=== PATIENT | female | born 1975 | race Caucasian/White ===

== ENCOUNTER 2024-08-29 09:41 | Outpatient (AMB) | payer BC, SELFPAY ==
--- OUTSIDE RECORDS SUMMARY | 2024-08-29 10:23 | XMS_ITS | Data Portability ---
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 Plan of Treatment Reminders Order Date Submit Date Provider Last Modified By Organization Details Last Modified Time Details Appointments FOLLOW UP 1 2024 10:45A M Humberto Alex MD Not available Not available Not available Lab lipid panel, serum 2024 025 [facility], [address] , [facility], [place], [address], 07/06/2024 09:12:30 CMP, serum or plasma 2024 025 [facility], [address], [address], [place], [address], 07/06/2024 09:12:30 TSH, ultra- sensit urbano, serum 2024 025 SARAH [facility] (Centralized Electronic Ordering - All Locations), Patient Can Go To The Location Of Their Choice, [address] 07/06/2024 09:12:29 vitami n D, 25-hyd irma, total, serum 2024 025 SARAH [facility] (Centralized Electronic Ordering - All Locations), Patient Can Go To The Location Of Their Choice, 07/06/2024 09:12:29 lipid panel, serum 2023 024 [facility], [address], [address], [place], [address], 09/22/2023 13:24:00 CMP, serum or plasma 2023 024 [facility], [address] [facility], [address], [place], [address], 09/22/2023 13:23:59 TSH, serum or plasma 2023 024 [facility], [address] [facility], [address], [place], [address], 09/22/2023 13:24:00 vitami n D, 25-hyd irma, total, serum 2023 024 SARAH [facility] (Centralized Electronic Ordering - All Locations), Patient Can Go To The Location Of Their Choice, 09/22/2023 13:24:01 Referral nutrit ionist /dieti sheryl referr al 2024 025 Not available 07/06/2024 11:45:39 psychi atrist referr al - Medica tion consul tation with Adolph Lemos MD 2023 024 paramjit Lemos MD, [address] [facility], [place], [address], 01/22/2024 22:40:18 gyneco logist referr al - for eval of irregu lar period s/cerv ical cancer screen ing 2023 024 alberto Mccracken MD, [address] [facility], [address], [place], [address], 01/03/2024 09:45:33 gyneco logist referr al - Patien t to schedu le 2023 024 [email or web address] Not available 01/03/2024 09:45:33 gastro entero logist referr al - Needs colon cancer screen ing 2023 024 [email or web address] [facility], [address], [address], [place], [address], 07/05/2023 13:34:07 nutrit ionist /dieti sheryl referr al 2023 024 [email or web address] Not available 07/05/2023 13:28:37 Procedures colono scopy screen ing (PROC) 2023 024 [id number] In-Office Order, Internal Use Only DO Not Attach Compendium DO Not Attach Compendium, Do Not Delete/merge, 07/05/2023 13:26:59 Surgeries None record ed. Imaging electr ocardi ogram 2024 025 [email or web address] In-Office Order, Internal Use Only DO Not Attach Compendium DO Not Attach Compendium, Do Not Delete/merge, 07/06/2024 09:24:21 electr omyogr am + nerve conduc tion study - for b/l upper extrem ity 2023 024 [email or web address] [facility] Neurosurgery Clinical Nurse Reviewer, [address] [place] [address] , [place], [address], 02/24/2024 09:18:51 Medication Orders clonaz epam 0.5 mg tablet 2024 025 [id number], [address], [place], [address], 07/06/2024 09:12:17 Patient TargetsNo targets recorded. Patient Instructions Encounter Date Encounter Id Patient Instructions Last Modified By Organization Details Last Modified Time 12/31/2022 [id number] Medications (OTC, herbal therapies, supplements) reviewed and reconciled with patient and or caregiver, including potential side effects, drug interactions, instructions, and the consequences of not taking medication. Reviewed potential barriers to medication adherence, such as side effects from medication or cost of medication. [email or web address] Not available 12/31/2022 13:56:49 03/25/2023 [id number] sleep apnea: care instructions awychowski Not available 03/25/2023 13:23:41 learning about mood disorders awychowski Not available 03/25/2023 13:23:41 07/05/2023 [id number] high cholesterol: care instructions awychowski Not available 07/05/2023 09:39:42 Cervical Cancer Screening awychowski Not available 07/05/2023 09:41:10 sleep apnea: care instructions awychowski Not available 07/05/2023 09:39:42 fibromyalgia: care instructions awychowski Not available 07/05/2023 09:39:42 anxiety disorder: care instructions awychowski Not available 07/05/2023 09:39:42 learning about mood disorders awychowski Not available 07/05/2023 09:39:42 learning about colon cancer awychowski Not available 07/05/2023 09:39:43 starting a weight loss plan: care instructions awychowski Not available 07/05/2023 09:39:42 12/21/2023 [id number] learning about mood disorders awychowski Not available 12/21/2023 12:02:52 07/06/2024 [id number] high cholesterol: care instructions awychowski Not available 07/06/2024 09:12:14 Cervical Cancer Screening awychowski Not available 07/06/2024 09:12:14 sleep apnea: care instructions awychowski Not available 07/06/2024 09:12:14 fibromyalgia: care instructions awychowski Not available 07/06/2024 09:12:14 anxiety disorder: care instructions awychowski Not available 07/06/2024 09:12:14 learning about mood disorders awychowski Not available 07/06/2024 09:12:14 starting a weight loss plan: care instructions awychowski Not available 07/06/2024 09:12:14 Reason for Referral 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 Refer ral for Body mass index 30+ - obesity Referring Physician: Humberto Alex, Family Medicine, Encounter Date: 07/05/2023 Ornamental Ironworker Helper Referral for Screening for malignant neoplasm of colon Needs colon cancer screening Referring Physician: Family Katty Smith, Encounter Date: 07/05/2023 Loading Machine Operator Referral for Me nometrorrhagia for eval of irregular periods/cervical cancer screening Referring Physician: Family Katty Smith, Encounter Date: 07/05/2023 Loading Machine Operator Referral for Sc reening for malignant neoplasm of cervix Patient to schedule Referring Physician: Family Katty Smith, Encounter Date: 07/05/2023 Psychiatrist Referral for De pressive disorder Medication Consultation Medication consultation with Adolph Lemos MD Referring Physician: Family Katty Smith, Encounter Date: 12/21/2023 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 Refer ral for Body mass index 30+ - obesity Referring Physician: Family Katty Smith, Encounter Date: 07/06/2024 Results Created Date Observation Date Name Description Value Unit Range Abnormal Flag Note LastModifiedBy Organization Detail LastModifiedTime 09/15/19 24 09/15/2023 COMP. METAB OLIC PANEL (14) glucose 88 mg/dL 70-99 normal Not Available [facility] ([facility]) [address] [place], [address], 09/22/2023 13:23:59 09/15/19 24 09/15/2023 COMP. METAB OLIC PANEL (14) BUN 8 mg/dL 6-24 normal Not Available [facility] ([facility]) [address] [place], [address], 09/22/2023 13:23:59 09/15/19 24 09/15/2023 COMP. METAB OLIC PANEL (14) creatinine 0.86 mg/dL 0.57-1 .00 normal Not Available [facility] ([facility]) [address] [place], [address], 09/22/2023 13:23:59 09/15/19 24 09/15/2023 COMP. METAB OLIC PANEL (14) eGFR 83 mL/mi n/1.7 3 >59 normal Not Available [facility] ([facility]) [address] [place], [address], 09/22/2023 13:23:59 09/15/19 24 09/15/2023 COMP. METAB OLIC PANEL (14) BUN/creatini ne ratio 9 9-23 normal Not Available [facility] ([facility]) [address] [facility], [place], [address], 09/22/2023 13:23:59 09/15/19 24 09/15/2023 COMP. METAB OLIC PANEL (14) sodium 139 mmol/ L 134-14 4 normal Not Available [facility] ([facility]) [address] [facility], [place], [address], 09/22/2023 13:23:59 09/15/19 24 09/15/2023 COMP. METAB OLIC PANEL (14) potassium 4.0 mmol/ L 3.5-5. 2 normal Not Available [facility] ([facility]) [address] [place], [address], 09/22/2023 13:23:59 09/15/19 24 09/15/2023 COMP. METAB OLIC PANEL (14) chloride 105 mmol/ L 96-106 normal Not Available [facility] ([facility]) [address] [place], [address], 09/22/2023 13:23:59 09/15/19 24 09/15/2023 COMP. METAB OLIC PANEL (14) carbon dioxide, total 19 mmol/ L 20-29 below low normal Not Available [facility] ([facility]) [address] [place], [address], 09/22/2023 13:23:59 09/15/19 24 09/15/2023 COMP. METAB OLIC PANEL (14) calcium 9.4 mg/dL 8.7-10 .2 normal Not Available [facility] ([facility]) [address] [place], [address], 09/22/2023 13:23:59 09/15/19 24 09/15/2023 COMP. METAB OLIC PANEL (14) protein, total 7.2 g/dL 6.0-8. 5 normal Not Available [facility] ([facility]) [address] [place], [address], 09/22/2023 13:23:59 09/15/19 24 09/15/2023 COMP. METAB OLIC PANEL (14) albumin 4.3 g/dL 3.9-4. 9 normal Not Available [facility] ([facility]) [address] [place], [address], 09/22/2023 13:23:59 09/15/19 24 09/15/2023 COMP. METAB OLIC PANEL (14) globulin, total 2.9 g/dL 1.5-4. 5 Not Available [facility] ([facility]) [address] [place], [address], 09/22/2023 13:23:59 09/15/19 24 09/15/2023 COMP. METAB OLIC PANEL (14) bilirubin, total 0.3 mg/dL 0.0-1. 2 normal Not Available [facility] ([facility]) [address] [place], [address], 09/22/2023 13:23:59 09/15/19 24 09/15/2023 COMP. METAB OLIC PANEL (14) alkaline phosphatase 93 IU/L 44-121 normal Not Available [facility] ([facility]) [address] [place], [address], 09/22/2023 13:23:59 09/15/19 24 09/15/2023 COMP. METAB OLIC PANEL (14) AST (SGOT) 19 IU/L 0-40 normal Not Available [facility] ([facility]) [address] [facility], [place], [address], 09/22/2023 13:23:59 09/15/19 24 09/15/2023 COMP. METAB OLIC PANEL (14) ALT (SGPT) 18 IU/L 0-32 normal Not Available [facility] ([facility]) [address] [place], [address], 09/22/2023 13:23:59 09/15/19 24 09/15/2023 LIPID PANEL cholesterol, total 275 mg/dL 100-19 9 above high normal Not Available [facility] ([facility]) [address] [place], [address], 09/22/2023 13:24:00 09/15/19 24 09/15/2023 LIPID PANEL triglyceride s 158 mg/dL 0-149 above high normal Not Available [facility] ([facility]) [address] [place], [address], 09/22/2023 13:24:00 09/15/19 24 09/15/2023 LIPID PANEL HDL cholesterol 53 mg/dL >39 normal Not Available [facility] ([facility]) [address] [facility], [place], [address], 09/22/2023 13:24:00 09/15/19 24 09/15/2023 LIPID PANEL VLDL cholesterol sergio 29 mg/dL 5-40 Not Available [facility] ([facility]) [address] [place], [address], 09/22/2023 13:24:00 09/15/19 24 09/15/2023 LIPID PANEL LDL chol calc ([facility]) 193 mg/dL 0-99 above high normal Not Available [facility] ([facility]) [address] [place], [address], 09/22/2023 13:24:00 09/15/19 24 09/15/2023 LIPID PANEL LDL calc comment: COMMEN T Consi andrea evalu ating for Famil ial Hyper juvencio stero lemia (FH), if clini lisa indic ated. Not Available [facility] ([facility]) [address] [facility], [place], [address], 09/22/2023 13:24:00 09/15/19 24 09/22/2023 THYRO ID STIMU LATIN G HORMO NE TSH-icma 5.3 uu/mL above high normal Refer ence Range : Non-P regna nt Adult 0.450 -4.50 0 Pregn griselda First Trime ster 0.100 -4.00 0 Secon d Trime ster 0.200 -4.00 0 Third Trime ster 0.300 -4.50 0 Not Available [facility] [address] [place], [address], 09/22/2023 13:24:00 09/15/19 24 09/16/2023 VITAM IN D, 25-HY DROXY vitamin D, 25-hydroxy 48.0 NG/mL 30.0-1 00.0 Vitam in D defic iency has been defin ed by the Insti tute of Medic ine and an Endoc rine Socie ty pract ice guide line as a level of serum 25-OH vitam in D less than 20 ng/mL (1,2) . The Endoc rine Socie ty went on to furth er defin e vitam in D insuf ficie ncy as a level betwe en 21 and 29 ng/mL (2). 1. IOM (Inst itute of Medic ine). 2009. Dieta ry refer ence intak es for calci um and D. Tania lassiter [place]: The [facility] [employer] . 2. Alex roque MF, Bessie cabrera [place], Josefa off-F david i ESPINOSA, et al. Evalu ation , treat ment, and preve ntion of vitam in D defic iency : an Endoc rine Socie ty clini sergio pract ice guide line. JCEM. 2010; 96(7) :1911 -30. Not Available [facility] ([facility]) [address] [facility], [place], [address], 09/22/2023 13:24:01 02/23/19 24 02/23/2023 MAMMO , scree aditya, digit al, bilat eral PROCED URE: MM Digita l Mammo Screen ing INDICA TION: Screen ing. No known palpab le abnorm alitie s. COMPAR FRENCH: Mammog tahira dating back to 2019. TECHNI QUE: Full-f ield digita l CC and MLO 3D tomosy nthesi s images of both breast s were acquir ed. Comput er-aid ed detect ion (CAD) was utiliz ed in the interp retati on of this study. DENSIT Y: The breast tissue contai ns scatte red areas of fibrog landul ar densit y. FINDIN GS: No suspic ious masses , suspic ious microc alcifi cation s, or areas of lachelle ectura l distor tion are seen in either breast to sugges t malign griselda. IMPRES CRUZITO: No mammog raphic eviden ce of malign griselda. RECOMM ENDATI ON: Annual mammog raphic screen ing BI-RAD S: 1 (Negat urbano) Lay letter mailed to jun tomy WSN: [id number] Orderi nati Physic marilyn: Humberto Geiger Dictat ed By: Gwendolyn Dejesus MD Dicterica ed Date/T dorene: 8:52 am Review ed By: Gwendolyn Dejesus MD Signed By: Gwendolyn Dejesus MD Signed Date/T dorene: 8:52 am Transc ribed By: CSTracee Transc riptio n Date/T dorene: 8:49 am Birads : Jun huitron Class: Outpat ient [facility] (Outpt Imaging) [address] [facility], [place], [address], 03/25/2023 13:09:35 02/23/19 24 02/24/2020 MAMMO , scree aditya, bilat eral No observ ation record ed. [facility] [address], [place], [address], 03/25/2023 13:09:36 05/12/19 24 05/12/2023 US, hawale x, venou s, upper extre mity, limit ed No observ ation record ed. [facility] Diagn[facility] Imaging Dept [address] [place], [address], 07/05/2023 09:15:44 05/12/19 24 05/12/2023 XR, chest , 2 view No observ ation record ed. [facility] [address] [facility], [place], [address], 07/05/2023 09:15:44 05/17/19 24 05/11/2023 elect rocar diogr am No observ ation record ed. awychowski Not Available 07/04 09:15:44 05/17/19 24 05/11/2023 elect rocar diogr am No observ ation record ed. [facility] Not [facility] 07/04 09:15:44 11/24/19 24 11/24/2023 XR, lumba r spine Lumbar Spine 2 or 3 Views Reason : low back pain COMPAR FRENCH: 015. FINDIN GS: No bone lesion s or fractu res. Normal disc config uratio n. Normal alignm ent. No spondy lolysi s or spondy lolist hesis. Normal soft tissue s. IMPRES CRUZITO: No acute abnorm ality. WSN: [id number] Orderi ng Physic marilyn: Humberto Geiger Dictat ed By: Evan bunch MD, Trent Weller Dictat ed Date/T dorene: 2:46 pm Review ed By: Evan bunch MD, Trent Weller Signed By: Trent Roman MD, V Signed Date/T dorene: 2:46 pm Transc ribed By: MIKE Transc ribed Date/T dorene: 2:45 pm Patien t Class: Outpat ient [facility] (Outpt Imaging) [address] [place], [address], 12/21/2023 11:41:07 11/24/19 24 11/24/2023 XR, thora cic spine , 3 view Thorac ic Spine 3 Views Reason : pain in thorac ic spine COMPAR FRENCH: 012 FINDIN GS: No bone lesion s or fractu res. Mild-t o-mode rate multil evel loss of disc height . Multil evel degene rative endpla te osteop hyte format ion throug hout the thorac ic spine and lower cervic al spine. Mild leftwa rd curvat ure of the upper thorac ic spine and rightw nick curvat ure of the midtho racic spine. Visual ized lungs are clear. Normal soft tissue s. IMPRES CRUZITO: Degene rative disc change s but no eviden ce of an acute proces s. Overal l degene rative disc diseas e has progre ssed when compar ed to 012. WSN: [id number] Orderi ng Physic marilyn: Humberto Geiger Dictat ed By: Jose R Sanchez MD Dictat ed Date/T dorene: 4:33 pm Review ed By: Jose R Sanchez MD Signed By: Jose R Sanchez MD Signed Date/T dorene: 4:33 pm Transc ribed By: MIEK Transc ribed Date/T dorene: 3:59 pm Patien t Class: Outpat ient [facility] (Outpt Imaging) [address] [place], [address], 12/21/2023 11:41:07 02/28/19 25 02/29/2024 elect romyo gram + nerve condu ction study No observ ation record ed. [facility] [address] [place], [address], 02/29/2024 18:06:43 07/07/19 25 07/06/2024 elect rocar diogr am No observ ation record ed. [facility] In-Office Order Internal Use Only DO Not Attach Compendium DO Not Attach Compendium, Do Not Delete/merge, [id number] 07/06/2024 17:13:29 07/07/19 25 elect merly diogr am No observ ation record ed. SARAH In-Office Order Internal Use Only DO Not Attach Compendium DO Not Attach Compendium, Do Not Delete/merge, [id number] 07/06/2024 18:26:21 07/22/19 25 07/20/2024 MAMMO , scree aditya, digit al, bilat eral PROCED URE: MM Digita l Mammo Screen ing INDICA TION: Screen ing for breast cancer . No known palpab le abnorm alitie s. COMPAR FRENCH: Prior mammog tahira most recent ly dated 02/23/19 24. TECHNI QUE: Full-f ield digita l CC and MLO 3D tomosy nthesi s images of both breast s were acquir ed. Comput er-aid ed detect ion (CAD) was utiliz ed in the interp retati on of this study. DENSIT Y: There are scatte red areas of fibrog landul ar densit y. FINDIN GS: No suspic ious masses , suspic ious microc alcifi cation s, or areas of lachelle ectura l distor tion are seen in either breast to sugges t malign griselda. IMPRES CRUZITO: No mammog raphic eviden ce of malign griselda. RECOMM ENDATI ON: Annual mammog raphic screen ing BI-RAD S: 1 (Negat urbano) Lay letter mailed to jun huitron WSN: [id number] Orderi ng Physic marilyn: Humberto Geiger Dictat ed By: Morgan Smith MD Dictat ed Date/T dorene: 10:44 am Review ed By: Morgan Smith MD Signed By: Morgan Smith MD Signed Date/T dorene: 10:44 am Transc ribed By: MIKE Transc riptio n Date/T dorene: 10:35 am Birads : Jun huitron Class: Outpat ient [email or web address] [facility] (Outpt Imaging) [address], [place], [address], 07/21/2024 11:49:56 07/22/1907/20/2024 MAMMO , priya burgess, daniel weems, margarita kelly No observ ation record ed. [facility] [address], [place], [address], 07/24/2024 10:17:41 Result Notes Documentation Provider Name and Address Organization Details Recorded Time Mammo, Screening, Digital, Bilateral : PROCEDURE: MM Digital Mammo Screening INDICATION: Screening. No known palpable abnormalities. COMPARISON: Mammograms dating back to 12/10/2019. TECHNIQUE: Full-field digital CC and MLO 3D tomosynthesis images of both breasts were acquired. Computer-aided detection (CAD) was utilized in the interpretation of this study. DENSITY: The breast tissue contains scattered areas of fibroglandular density. FINDINGS: No suspicious masses, suspicious microcalcifications, or areas of architectural distortion are seen in either breast to suggest malignancy. IMPRESSION: No mammographic evidence of malignancy. RECOMMENDATION: Annual mammographic screening BI-RADS: 1 (Negative) Lay letter mailed to patient WSN: [id number] Ordering Physician: Humberto Alex Dictated By: Gwendolyn Monet MD Dictated Date/Time: 02/23/23 8:52 am Reviewed By: Gwendolyn Monet MD Signed By: Gwendolyn Monet MD Signed Date/Time: 02/23/23 8:52 am Transcribed By: MIKE Director Of In Service Education Date/Time: 02/23/23 8:49 am Birads: Patient Class: Outpatient Humberto Alex MD [address] [facility] [address], [place], [address], [facility] 03/25/2023 13:09:35 Xr, Lumbar Spine : Lumbar Spine 2 or 3 Views Reason: low back pain COMPARISON: 04/24/2014. FINDINGS: No bone lesions or fractures. Normal disc configuration. Normal alignment. No spondylolysis or spondylolisthesis. Normal soft tissues. IMPRESSION: No acute abnormality. WSN: [id number] Ordering Physician: Humberto Alex Dictated By: Trent Montana MD, V Dictated Date/Time: 11/24/23 2:46 pm Reviewed By: Trent Montana MD, V Signed By: Trent Montana MD, V Signed Date/Time: 11/24/23 2:46 pm Transcribed By: MIKE Transcribed Date/Time: 11/24/23 2:45 pm Patient Class: Outpatient Humberto Alex MD [address], [address], [facility] 12/21/2023 11:41:07 Xr, Thoracic Spine, 3 View : Thoracic Spine 3 Views Reason: pain in thoracic spine COMPARISON: 05/15/2011 FINDINGS: No bone lesions or fractures. [id number] multilevel loss of disc height. Multilevel degenerative endplate osteophyte formation throughout the thoracic spine and lower cervical spine. Mild leftward curvature of the upper thoracic spine and rightward curvature of the midthoracic spine. Visualized lungs are clear. Normal soft tissues. IMPRESSION: Degenerative disc changes but no evidence of an acute process. Overall degenerative disc disease has progressed when compared to 05/15/2011. WSN: [id number] Ordering Physician: Humberto Alex Dictated By: Jose R Dexter MD Dictated Date/Time: 11/24/23 4:33 pm Reviewed By: Jose R Dexter MD Signed By: Jose R Dexter MD Signed Date/Time: 11/24/23 4:33 pm Transcribed By: MIKE Transcribed Date/Time: 11/24/23 3:59 pm Patient Class: Outpatient Humberto Alex MD [address], [address], [facility] 12/21/2023 11:41:07 Mammo, Screening, Digital, Bilateral : PROCEDURE: MM Digital Mammo Screening INDICATION: Screening for breast cancer. No known palpable abnormalities. COMPARISON: Prior mammograms most recently dated 02/23/2023. TECHNIQUE: Full-field digital CC and MLO 3D tomosynthesis images of both breasts were acquired. Computer-aided detection (CAD) was utilized in the interpretation of this study. DENSITY: There are scattered areas of fibroglandular density. FINDINGS: No suspicious masses, suspicious microcalcifications, or areas of architectural distortion are seen in either breast to suggest malignancy. IMPRESSION: No mammographic evidence of malignancy. RECOMMENDATION: Annual mammographic screening BI-RADS: 1 (Negative) Lay letter mailed to patient WSN: [id number] Ordering Physician: Humberto Alex Dictated By: Sandy Smith MD Dictated Date/Time: 07/21/24 10:44 am Reviewed By: Sandy Smith MD Signed By: Sandy Smith MD Signed Date/Time: 07/21/24 10:44 am Transcribed By: MIKE Director Of In Service Education Date/Time: 07/21/24 10:35 am Birads: [facility] 11:49:56 Problems Name Problem SNOMED Code Status Onset Date Resolution Date Notes Provider Name and Address Organization Details Recorded Time Allergy to drug 228272272 Completed 201108/29/2013 IMPRESSI ON: SUSPECT REACTION TO EITHER FLU SHOT OR AUGMENTI N. WILL SEE OF STEROID HELPS WITH EDEMA AND PRURITIS . COMMON/S ERIOUS SIDE EFFESCT DISCUSSE D. CALL IF NOTED OR ADDITION AL SYMPTOMS DEVELOP. ; RECORDED 10/15/19 12 8:23AM BY SAEID BAUMAN MA, CHANEL ON/ROHINI Alex MD [facility] [address], [place], [address] , [facility] 6 08:44:18 Adult health examinat ion Completed 201308/29/2013 IMPRESSI ON: WILL UPDATE IMMUNIZA TION STATUS AND SCREEN BASED ON RISK FACTORS. REGULAR DENTAL CARE AND SEATBELT USE ADVISED. DISTRACT ED DRIVING DISCUSSE D. CERVICAL CANCER SCREENIN G UTD.; RECORDED 04/06/19 14 8:03AM BY JUANY TAYLOR MA, ANNOTATI ON/ROHINI Alex MD [facility] [address], [place], [address] , [facility] 6 08:44:18 Anxiety state [id number] Completed 201306/02/2016 Humberto Alex MD [address] [facility] [address], [place], [address] , [facility] 7 16:00:22 Screenin g for malignan t neoplasm of cervix Completed 201108/29/2013 RECORDED 12/02/19 12 2:20PM BY JUANY TAYLOR MA, ANNOTATI ON/ROHINI Alex MD [address] [facility] [address], [place], [address] , [facility] 6 08:44:18 Neurosis [id number] Completed 201208/29/2013 RECORDED 03/01/19 13 10:55AM BY ISIAH SMITH, ANNOTATI ON/ROHINI Alex MD [address] [facility] [address], [place], [address] , [facility] 6 08:44:18 Educatio n Completed 201208/29/2013 IMPRESSI ON: WILL CONSULT BAG SEWER PT INTEREST ED IN NON HORMONAL OPTIONS. ; RECORDED 06/09/19 13 3:00PM BY JUANY TAYLOR MA, ANNOTATI ON/ROHINI Alex MD [address] [facility] [address], [place], [address] , [facility] 6 08:44:18 Cough [id number] Completed 201304/02/2016 Nishi ching, [facility] 7 08:48:14 Tobacco dependen ce syndrome [id number] Completed 201304/16/2016 Removal Reason: quit Sonali Latasha-ZAHIDA Brown, [facility] 7 10:47:41 Tobacco dependen ce syndrome [id number] Completed 201308/29/2013 IMPRESSI ON: PT REMAINS PRECONTE MPLATIVE AND UNDERSTA NDING OF POTENT[place] L ALF HEALTH CONSEQUE NCES. WILL CALL IF ASSISTAN CE IS NEEDED.; RECORDED 04/06/19 14 8:03AM BY JUANY TAYLOR MA, CHANEL ON/ADDZAHIDA Casanova, [facility] 7 10:47:41 Depressi ve disorder [id number] Active 2013 Not Available [facility] 4 10:21:33 Influenz a vaccine needed [id number] 06 Completed 201108/29/2013 RECORDED 10/07/19 12 2:04PM BY HUMBERTO Castro MD, OFFICE VISIT Humberto Alex MD [address], [place], [address] , [facility] 6 08:44:18 Well child [id number] Completed 201108/29/2013 IMPRESSI ON: IF PAP NL WILL CONTINUE ROUTINE SCREENIN G.; RECORDED 12/02/19 12 2:20PM BY JUANY TAYLOR MA, CHANEL ON/ADD POOJA Alex MD [address] [facility] [address], [place], [address] , [facility] 6 08:44:18 History of drug allergy Completed 201304/02/2016 Nishi ching, [facility] 7 08:48:11 Headache [id number] Completed 201108/29/2013 IMPRESSI ON: ? IF RELATED TO HEAD INJURY VS SINUSITI S. WILL COMPLETE COURSE OF ABX AND REASSESS . IF PERSISTA NT/WORSE AT F/U ALONG WITH TINNITUS AND TROUBLE CONCENTR ATING WILL ASK NEURO FOR HELP MANAGING POSSIBLE CONSUSSI ON SYMPTOMS . ADVISED PT TO AVOID ACTIVITI ES THAT MIGHT RESULT IN RE-INJUR Y.; RECORDED 10/15/19 12 8:23AM BY SAEID BAUMAN MA, CHANEL ON/ROHINI Alex MD [address], [place], [address] , [facility] 6 08:44:18 Pure hypercho lesterol emia 595238036 Active 2013 Not Available [facility] 4 10:21:33 Intracra nial injury 384202754 Completed 201108/29/2013 IMPRESSI ON: SYMPTIOM S HAVE RESOLVED , EXAM NL. DEFER FURTHER EVAL AT THIS TIME. OK TO DRIVE FOR WORK.; RECORDED 12/02/19 12 2:20PM BY JUANY TAYLOR MA, ANNOTATI ON/ROHINI Alex MD [address], [place], [address] , [facility] 6 08:44:18 Benign neoplasm of skin 54772543 Completed 201108/29/2013 IMPRESSI ON: CONCERNI GN MAINLY REGARDIN G SIZE OTHERWIS E MINIMALL Y SUSPICIO US. ABCD'S OF SKIN CANCER MONITORI NATI MURRAY D. REFER TO DERM WITH ANY CHANGES. ; RECORDED 12/02/19 12 2:20PM BY JUANY TAYLOR MA, ANNOTATI ON/ROHINI Alex MD [address], [place], [address] , [facility] 6 08:44:18 Obesity [id number] Completed 201312/23/2016 Humberto Alex MD [address], [place], [address] , [facility] 7 09:31:44 Otalgia [id number] Completed 201108/29/2013 IMPRESSI ON: BASED ON EXAM FINDINGS THIS IS MOST LIKELY SECONDAR Y TO CYST/ABS CESS OF POSTERIO N EXTERNAL EAR CANAL. WILL TREAT WITH TOPICAL ANALGESI C. PT ASKED TO CALL INB/ANGELA Horvath.; RECORDED 01/22/20 12 8:37AM BY JUANY TAYLOR MA, ANNOTATI ON/ROHINI Alex MD [address] [facility] [address], [place], [address] , [facility] 6 08:44:18 Active or passive immuniza tion Completed 201208/29/2013 RECORDED 10/07/19 13 9:24AM BY HUMBERTO Castro MD, OFFICE VISIT Humberto Alex MD [address] [address], [place], [address] , [facility] 6 08:44:18 Allergic rhinitis 30246405 Completed 201304/02/2016 Nishi Sarabia MA [facility] 7 08:48:18 Acute sinusiti s 62003412 Completed 201208/29/2013 IMPRESSI ON: BASED ON SYMPTOMS DURATION AND RISK FACTORS (TOBACCO ABUSE) WILL COVER WITH BRAOD SPECTRUM ABX; RECORDED 04/12/19 13 10:59AM BY JUANY TAYLOR MA, ANNOTATI ON/ADDEN DUM Humberto Alex MD [address] [address], [place], [address] , [facility] 6 08:44:18 Allergy to drug [id number] Completed 201109/25/2013 IMPRESSI ON: SUSPECT REACTION TO EITHER FLU SHOT OR AUGMENTI N. WILL SEE OF STEROID HELPS WITH EDEMA AND PRURITIS . COMMON/S ERIOUS SIDE EFFESCT DISCUSSE D. CALL IF NOTED OR ADDITION AL SYMPTOMS DEVELOP. ; RECORDED 10/15/19 12 8:23AM BY SAEID BAUMAN MA, ANNOTATI ON/ADDEN DUM Humberto Alex MD [address] [address], [place], [address] , [facility] 6 08:44:18 Adult health examinat ion Completed 201309/25/2013 IMPRESSI ON: WILL UPDATE IMMUNIZA TION STATUS AND SCREEN BASED ON RISK FACTORS. REGULAR DENTAL CARE AND SEATBELT USE ADVISED. DISTRACT ED DRIVING DISCUSSAlexandru [place]. CERVICAL CANCER SCREENIN [place] UTLeida.; RECORDED 04/06/19 14 8:03AM BY JUANY TAYLOR MA, ANNOTATI ON/ADDEN DUM Humberto Alex MD [address] [address], [place], [address] , [facility] 6 08:44:18 Screenin g for malignan t neoplasm of cervix Completed 201109/25/2013 RECORDED 12/02/19 12 2:20PM BY JUANY TAYLOR MA, ANNOTATI ON/ADDEN DUM Humberto Alex MD [address] [facility] [address], [place], [address] , [facility] 6 08:44:18 Neurosis [id number] Completed 201209/25/2013 RECORDED 03/01/19 13 10:55AM BY ISIAH SMITH, ANNOTATI ON/ADDEN POOJA Alex MD [address] [facility] [address], [place], [address] , [facility] 6 08:44:18 Educatio n Completed 201209/25/2013 IMPRESSI ON: WILL CONSULT BAG SEWER PT INTEREST ED IN NON HORMONAL OPTIONS. ; RECORDED 06/09/19 13 3:00PM BY JUANY TAYLOR MA, ANNOTATI ON/ADDEN DUM Humberto Alex MD [address] [facility] [address], [place], [address] , [facility] 6 08:44:18 Cough [id number] Completed 201309/25/2013 IMPRESSI ON: GUIVEN SYMPTM DURATION AND ACTIVE TOBACCO USE WILL TREAT FOR POSSIBLE SECONDAR Y BACTERIA L PROCESS. ; RECORDED 08/09/19 14 2:39PM BY ANTOINETTE HENDERSON MA, ANNOTATI ON/ADDEN DUM Nishi Sarabia MA null, [facility] 7 08:48:14 Tobacco dependen ce syndrome [id number] Completed 201309/25/2013 RECORDED 08/17/19 14 9:37AM BY SAEID BAUMAN MA, ANNOTATI ON/ADDEN DUM Sonali frazier MA null, [facility] 7 10:47:41 Influenz a vaccine needed [id number] 06 Completed 201109/25/2013 RECORDED 10/07/19 12 2:04PM BY HUMBERTO Castro MD, OFFICE VISIT Humberto Alex MD [address] [facility] [address], [place], [address] , [facility] 6 08:44:18 Tobacco user [id number] Completed 201304/16/2016 Removal Reason: quit Sonali Latasha-Zahida berryos, ZAHIDA null, [facility] 7 10:47:35 History of clinical finding in subject [id number] Completed 201311/03/2013 Humberto Alex MD [address] [facility] [address], [place], [address] , [facility] 6 08:44:18 Well child [id number] Completed 201109/25/2013 IMPRESSI ON: IF PAP NL WILL CONTINUE ROUTINE SCREENIN G.; RECORDED 12/02/19 12 2:20PM BY JUANY TAYLOR MA, ANNOTATI ON/ROHINI Alex MD [address] [facility] [address], [place], [address] , [facility] 6 08:44:18 Headache [id number] Completed 201109/25/2013 IMPRESSI ON: ? IF RELATED TO HEAD INJURY VS SINUSITI S. WILL COMPLETE COURSE OF ABX AND REASSESS . IF PERSISTA NT/WORSE AT F/U ALONG WITH TINNITUS AND TROUBLE CONCENTR ATING WILL ASK NEURO FOR HELP MANAGING POSSIBLE CONSUSSI ON SYMPTOMS . ADVISED PT TO AVOID ACTIVITI ES THAT MIGHT RESULT IN RE-INJUR Y.; RECORDED 10/15/19 12 8:23AM BY SAEID BAUMAN MA, ANNOTATI ON/ROHINI Alex MD [address] [facility] [address], [place], [address] , [facility] 6 08:44:18 Intracra nial injury [id number] Completed 201109/25/2013 IMPRESSI ON: SYMPTIOM S HAVE RESOLVED , EXAM NL. DEFER FURTHER EVAL AT THIS TIME. OK TO DRIVE FOR WORK.; RECORDED 12/02/19 12 2:20PM BY JUANY TAYLOR MA, CHANEL ON/ROHINI Alex MD [address] [address], [place], [address] , [facility] 6 08:44:18 Benign neoplasm of skin 12341934 Completed 201109/25/2013 IMPRESSI ON: CONCERNI GN MAINLY REGARDIN G SIZE OTHERWIS E MINIMALL Y SUSPICIO US. ABCD'S OF SKIN CANCER MONITORI NG DISCUSSE D. REFER TO DERM WITH ANY CHANGES. ; RECORDED 12/02/19 12 2:20PM BY JUANY TAYLOR MA, CHANEL ON/ROHINI Alex MD [address] [address], [place], [address] , [facility] 6 08:44:18 Otalgia [id number] Completed 201109/25/2013 IMPRESSI ON: BASED ON EXAM FINDINGS THIS IS MOST LIKELY SECONDAR Y TO CYST/ABS CESS OF POSTERIO N EXTERNAL EAR CANAL. WILL TREAT WITH TOPICAL ANALGESI C. PT ASKED TO CALL INB/ANGELA E.; RECORDED 01/22/20 12 8:37AM BY JUANY TAYLOR MA, CHANEL ON/ROHINI Alex MD [address] [facility] [address], [place], [address] , [facility] 6 08:44:18 Otitis media 61299247 Completed 201306/17/2015 Humberto Alex MD [address] [facility] [address], [place], [address] , [facility] 6 08:44:18 Active or passive immuniza tion Completed 201209/25/2013 RECORDED 10/07/19 13 9:24AM BY HUMBERTO Castro MD, OFFICE VISIT Humberto Alex MD [address], [place], [address] , [facility] 6 08:44:18 Acute sinusiti s 15876570 Completed 201209/25/2013 IMPRESSI ON: BASED ON SYMPTOMS DURATION AND RISK FACTORS (TOBACCO ABUSE) WILL COVER WITH BRAOD SPECTRUM ABX; RECORDED 04/12/19 13 10:59AM BY JUANY TAYLOR MA, ANNOTATI ON/ADDEN DUM Humberto Alex MD [address], [place], [address] , [facility] 6 08:44:18 Neoplasm of uncertai n behavior of skin 79566616 Completed 01/06/2017 Humberto Alex MD [address], [place], [address] , [facility] 7 08:45:32 Radicula r syndrome of lower limbs 97629801 Completed 12/23/2016 Humberto Alex MD [address], [place], [address] , [facility] 7 09:31:58 Viral gastroen teritis 459174416 Completed 06/17/2015 Humberto Alex MD [address], [place], [address] , [facility] 6 08:44:18 Expirato ry wheezing [id number] Completed 04/02/2016 Nishi ching, [facility] 7 08:48:28 Mantoux: positive 493241036 Active 2016 Not Available [facility] 4 10:21:33 Ex-smoke r [id number] Completed 201601/06/2017 Humberto Alex MD [address], [place], [address] , [facility] 7 08:42:56 Primary fibromya lgia syndrome 40991895 Active 2016 Not Available [facility] 4 10:21:33 Fibromya lgia 152100761 Completed 201612/23/2016 Humberto Alex MD [address], [place], [address] , [facility] 3 12:18:04 Vitamin D deficien cy 34358894 Active 2016 Not Available [facility] 4 10:21:33 Generali zed anxiety disorder 55085845 Active 2016 Not Available [facility] 4 10:21:33 History of tobacco use 65802940948 03 Active 2016 Not Available [facility] 4 10:21:33 Actinic keratosi s 155797958 Active 2017 Not Available [facility] 4 10:21:33 Migraine 54113901 Active 2018 Not Available [facility] 4 10:21:33 Sleep apnea 67255872 Active 2018 Auto CPAP Not Available [facility] 4 10:21:33 Allergic conjunct ivitis 443122470 Active 2019 Not Available [facility] 4 10:21:33 Seasonal allergic rhinitis 286596430 Active 2019 Not Available [facility] 4 10:21:33 Cervical arthriti s 838296936 Active 2019 Not Available [facility] 4 10:21:33 Mild intermit tent asthma 969119531 Active 2020 Not Available [facility] 4 10:21:33 Elevated blood-pr essure reading without diagnosi s of hyperten cruzito 779925016 Completed 202008/22/2020 Humberto Alex MD [address], [place], [address] , [facility] 1 16:26:05 Hypokale azeb 72590253 Completed 202010/06/2020 Humberto Alex MD [address], [place], [address] , [facility] 1 22:29:34 Hyperten sive disorder 41945034 Active 2020 Not Available [facility] 4 10:21:33 Suspecte d COVID-19 398335476 Completed 08/23/2020 Removal Reason: Problem added by user fernando Vieyra from the COVID-19 watch flag Zakiya Morrison humza, [facility] 1 09:15:36 Foot callus 365774495 Completed 202102/21/2021 Rufina Troncoso PA-C [address] [facility] [address], [place], [address] , [facility] 2 16:32:25 Lipoma 47956999 Active 2021 Not Available [facility] 4 10:21:33 History of SARS-CoV -2 [id number] 4324292 Active 2021 Not Available [facility] 4 10:21:33 Mixed hyperlip idemia 294568251 Active 2022 Not Available [facility] 4 10:21:33 Subclini sergio hypothyr oidism 98133362 Active 2022 Not Available [facility] 4 10:21:33 Fibromya lgia 222770865 Active 2016 Not Available [facility] 4 10:21:33 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 422181555 Active 2023 Humberto Alex MD [address] [facility] [address], [place], [address] , [facility] 4 06:49:07 Permanen tly unable to perform work activiti es due to medical conditio n 930065904 Active 2023 Humberto Alex MD [address] [facility] [address], [place], [address] , [facility] 4 13:02:34 Cervical radiculo sarah beth 65479259 Active 2023 Humberto Alex MD [address] [facility] [address], [place], [address] , [facility] 4 09:56:02 Posttrau matic stress disorder 90231343 Active 2024 Humberto Alex MD [address] [facility] [address], [place], [address] , [facility] 5 22:26:00 Body mass index 30+ - obesity 398472299 Active 2024 Humberto Alex MD [address] [facility] [address], [place], [address] , [facility] 5 08:53:10 Problem Notes None recorded. Procedures Surgical History Date Name Laterality Status Provider Name and Address Organization Details Recorded Time 07/22/19 25 Most Recent Mammogram completed Nini Lagos [facility] 07/21/2024 11:50:17 07/22/19 25 Mammogram screening completed Nini Lagos [facility] 07/21/2024 11:50:11 04/19/19 25 Date of Last Colonoscopy completed Lorena George [facility] 04/19/2024 12:07:28 04/19/19 25 Colonoscopy completed Lorena George [facility] 04/19/2024 12:08:01 11/02/19 24 injection of botulinum toxin completed Humberto Alex MD [address] [facility] [address], [place], [address], [facility] 12/26/2023 21:00:56 06/22/19 24 Other completed Kell Bryant MA [facility] 07/05/2023 09:00:45 05/25/19 19 Date of Last Pap Smear completed Juany Taylor MA [facility] 04/18/2019 08:54:50 Tubal Ligation completed DAVID Julio [address] [address], [place], [address], [facility] 11/03/2013 10:03:35 Imaging Results None recorded. Procedure Notes None recorded. Medical Equipment None Reported. Allergies Allergen ID Allergen Name Allergen Category Reaction Reaction Severity Criticality Documentation Date Start Date Code Code System Note Provider Name and Address Organization Details Recorded Time 89557 chlorthal idone medicatio n other moderate Not available 08/21/2020 2409 RxNorm hypok alemi a Humberto Alex MD [address] [facility] [address], [place], [address], [facility] 1 20:53:54 4296 codeine sulfate medicatio n Not available Not available Not available 08/29/20132011 89494 RxNorm REACT ION: VOMIT ING Humberto Alex MD [address] [address], [place], [address], [facility] 3 10:41:11 4297 codeine medicatio n nausea vomiting Not available Not available Not available 08/29/2013 2670 RxNorm Not Available [facility] 4 10:21:36 4298 Vaccine product containin g only Influenza virus antigen (medicina l product) medicatio n edema Not available Not available 08/29/20132013 01348 48495 105 SNOMED Carrington lock [place] [facility] 4 12:43:23 Medications Name Sig Start Date Stop Date Status Note LastModified by Organization Details LastModified Time venlafaxi ne ER 75 mg capsule,e xtended release 24 hr TAKE 1 CAPSULE BY MOUTH EVERY DAY WITH 150 MG TABLET active Not Available Not Available No t Available doxycycli ne hyclate 100 mg capsule Take 1 capsule twice a day by oral route for 10 days. 12/23 completed Not Available Not Available Not Available trazodone 50 mg tablet TAKE 1 TABLET BY MOUTH EVERY DAY AT BEDTIME NEEDED FOR 30 DAYS active Not Available Not Available No t Available azithromy myron 250 mg tablet TAKE 2 TABLETS BY MOUTH TODAY, THEN TAKE 1 TABLET DAILY FOR 4 DAYS DIRECTED 07/06 completed Not Available Not Available Not Available benzonata te 200 mg capsule TAKE 1 CAPSULE BY MOUTH THREE TIMES A DAY NEEDED FOR COUGH 12/31 completed Not Available Not Available Not Available sumatript an 100 mg tablet TAKE 1 TABLET BY MOUTH EVERY 4 HOURS UP TO TWICE A DAY FOR 30 DAYS 3 active Not Available Not Available No t Available Claritin 10 mg tablet Take 1 tablet every day by oral route as directed for 30 days. 11/20 completed Not Available Not Available Not Available prednison e 20 mg tablet TAKE 3 TABS X3 DAYS, 2 TABS X2 DAYS, 1 TAB X2 DAYS ORALLY ONCE A DAY 7 DAYS 07/06 completed Not Available Not Available Not Available clonazepa m 0.5 mg tablet TAKE 1 TABLET BY MOUTH THREE TIMES A DAY NEEDED FOR 30 DAYS 2024 active Not Available Not Available Not Avai lable rizatript an 10 mg tablet TAKE 1 TABLET BY MOUTH AT THE ONSET OF MIGRAINE FOR 30 DAYS 06/16 completed Not Available Not Available Not Available clonazepa m 1 mg tablet TAKE 1 TABLET BY MOUTH TWICE A DAY NEEDED 07/06 completed Not Available Not Available Not Available moxifloxa myron 400 mg tablet DAILY 01/31 completed RECORDED 03/01/19 13 10:55AM BY HUMBERTO Castro MD, MEDICATI ON AUTO-JACK CTIVATIO N; Not Available Not Available Not Available venlafaxi ne ER 150 mg capsule,e xtended release 24 hr TAKE 1 CAPSULE BY MOUTH EVERY DAY 2024 active Not Available Not Available Not Avai lable topiramat e 25 mg tablet TAKE 1 TABLET BY MOUTH TWICE A DAY 05/24 completed Not Available Not Available Not Available Motrin IB 200 mg tablet Take 1 tablet every 6 hours by oral route as needed. 06/02 completed Not Available Not Available Not Available chlorthal idone 25 mg tablet Take 1 tablet every day by oral route for 30 days. 07/31 completed hypokale azeb Not Available Not Available Not Available Tamiflu 75 mg capsule Take 1 capsule twice a day by oral route as directed for 5 days. 03/23 completed Not Available Not Available Not Available lovastati n 10 mg tablet Take 1 tablet every day by oral route. active Not Available Not Available No t Available amitripty line 50 mg tablet TAKE 1 TABLET BY MOUTH EVERY DAY AT BEDTIME FOR 90 DAYS active Not Available Not Available No t Available Medrol 4 mg tablet DAILY DIRECTED 10/14 completed RECORDED 10/15/19 12 8:23AM BY HUMBERTO Castro MD, MEDICATI ON AUTO-JACK CTIVATIO N; Not Available Not Available Not Available lamotrigi ne 25 mg tablet Take 1 tablet every day by oral route for 30 days. 06/16 completed Not Available Not Available Not Available Aleve 220 mg tablet Take 1 tablet every 12 hours by oral route as needed. 06/02 completed Not Available Not Available Not Available rifampin 300 mg capsule Take 2 capsules every day by oral route. 12/23 completed per infectio ns disease provider Not Available Not Available Not Available amoxicill in 875 mg tablet Take 1 tablet every 12 hours by oral route as directed for 10 days. 02/22 completed Not Available Not Available Not Available meclizine 25 mg tablet TAKE 1 TABLET BY MOUTH EVERY 8 HOURS NEEDED FOR 30 DAYS active Not Available Not Available No t Available Nicoderm CQ 14 mg/24 hr daily transderm al patch Apply 1 patch every day by transder mal route. 04/16 completed Not Available Not Available Not Available levothyro xine 50 mcg tablet TAKE 1 TABLET BY MOUTH EVERY DAY active Not Available Not Available No t Available erythromy myron 5 mg/gram (0.5 %) eye ointment APPLY 1 CM RIBBON INTO THE LOWER EYE LID OF AFFECTED EYE(S) 3 4 TIMES PER DAY FOR 7 10 DAYS 01/17 completed Not Available Not Available Not Available prednison e 50 mg tablet Take 1 tablet every day by oral route for 5 days. 2014 active Not Available Not Available Not Avai lable triamtere ne 37.5 mg-hydroc hlorothia zide 25 mg tablet TAKE 1/2 TABLET BY MOUTH DAILY active Not Available Not Available No t Available diclofena c sodium 75 mg tablet,de layed release TAKE 1 TABLET BY MOUTH TWICE A DAY AFTER MEALS active Not Available Not Available No t Available ibuprofen 600 mg tablet Take 1 tablet 3 times a day by oral route as needed for 30 days. 2016 active Not Available Not Available Not Avai lable lovastati n 20 mg tablet TAKE 1 TABLET BY MOUTH EVERY DAY DIRECTED 05/04 completed Not Available Not Available Not Available methylpre dnisolone 4 mg tablets in a dose pack TAKE 6 TABLETS ON DAY 1 DIRECTED ON PACKAGE AND DECREASE BY 1 TAB EACH DAY FOR A TOTAL OF 6 DAYS 07/06 completed Not Available Not Available Not Available albuterol sulfate HFA 90 mcg/actua tion aerosol inhaler Inhale 2 puffs every 4-6 hours by inhalati on route as needed for 30 days. 12/20 completed Not Available Not Available Not Available Vitamin D2 1,250 mcg (50,000 unit) capsule Take 1 capsule every week by oral route as directed for 60 days. 05/28 completed Not Available Not Available Not Available ondansetr on 4 mg disintegr ating tablet LET 1 TABLET DISSOLVE ON TOP OF THE TONGUE EVERY DAY FOR 30 DAYS 07/06 completed Not Available Not Available Not Available fluticaso ne propionat e 50 mcg/actua tion nasal spray,[employer] INSTILL 2 SPRAYS IN EACH NOSTRIL EVERY DAY NEEDED 2024 active Not Available Not Available Not Avai lable doxycycli ne hyclate 100 mg tablet Take 1 tablet twice a day by oral route for 10 days. 07/31 completed Not Available Not Available Not Available amoxicill in 875 mg-potass ium clavulana te 125 mg tablet Take 1 tablet every 12 hours by oral route for 10 days. 03/27 completed Not Available Not Available Not Available Antipyrin e W/Benzoca ine 5.4 %-1.4 % ear solution FOUR TIMES DAILY, NEEDED 12/11 completed RECORDED 01/22/20 12 8:37AM BY HUMBERTO Castro MD, MEDICATI ON AUTO-JACK CTIVATIO N; Not Available Not Available Not Available azithromy myron 500 mg tablet QD X 1 DAY, THEN 1 TAB PO QD X 4 DAYS 04/11 completed RECORDED 06/06/19 14 5:41AM BY HUMBERTO Castro MD, MEDICATI ON AUTO-JACK CTIVATIO N; Not Available Not Available Not Available escitalop kellie 20 mg tablet Take 0.5 tablets every other day by oral route. 07/17 completed Not Available Not Available Not Available Tylenol PM Extra Strength 25 mg-500 mg tablet Take 1 tablet as needed by oral route at bedtime. 03/23 completed Not Available Not Available Not Available topiramat e 50 mg tablet Take 1 tablet twice a day by oral route. 03/23 completed Not Available Not Available Not Available Co Q-10 200 mg capsule Take 1 capsule every day by oral route as directed for 30 days. active Not Available Not Available No t Available Klonopin 10/30 completed Not Available Not Available Not Available Botox active Q 3 months Not Available Not Available Not Available Lexapro 10/30 completed Not Available Not Available Not Available Alaway 0.025 % (0.035 %) eye drops INSTILL 1 DROP INTO AFFECTED EYE(S) BY OPHTHALM IC ROUTE 2 TIMES PER DAY 2016 active PRN Not Available Not Available Not Avai lable GaviLyte- G 236 gram-22.7 4 gram-6.74 gram-5.86 gram oral solution TAKE 4,000 ML BY MOUTH 1 TIME FOR 1 DOSE. DRINK 8 OZ EVERY 10-15 MINUTES UNTIL SOLUTION IS GONE 07/06 completed Not Available Not Available Not Available Vitamin D3 50 mcg (2,000 unit) capsule Take 1 capsule every day by oral route. active Not Available Not Available No t Available antipyrin e-benzoca ine 5.5 %-1.4 % ear drops TWO TIMES DAILY, NEEDED 08/13 completed RECORDED 08/16/19 14 11:02AM BY LUCY RILEY PA-C, MEDICATI ON AUTO-JACK CTIVATIO N; Not Available Not Available Not Available melatonin 10 mg tablet Take 1 tablet every day by oral route as needed. 03/23 completed Not Available Not Available Not Available Rhinocort Allergy 32 mcg/actua tion nasal spray Take 1 spray every day by nasal route as directed . active alternat es with Flonase Not Available Not Available Not Available Aimovig Autoinjec tor (2 Pack) Take 1 injectio n SC once a month 10/04 completed Not Available Not Available Not Available Flucelvax Quad (PF) 60 mcg (15 mcg x 4)/0.5 mL IM syringe PHARMACY ADMINIST [facility]UM 01/17 completed Not Available Not Available Not Available BinaxNOW COVID-19 Ag Self Test kit FOLLOW INSTRUCT IONS INCLUDED WITH THE PACKAGE. 06/16 completed Not Available Not Available Not Available Paxlovid 300 mg (150 mg x 2)-100 mg tablets in a dose pack TAKE 3 TABLETS BY MOUTH TWICE A DAY 12/31 completed Not Available Not Available Not Available Vitals Date Recorded Body height Body mass index (BMI) Body weight Heart rate Oxygen saturation Oxygen saturation in Arterial blood by Pulse oximetry Body temperature Systolic And Diastolic Provider Name and Address Organization Details Last Updated DateTime 4 163.83 cm 35.8 kg/m2 77178.5 8 g 102 /min 98 % 98 % 97.6 [degF] 114/78 mm[Hg] Carrington lock [facility] 4 12:42:36 Date Recorded Body height Body mass index (BMI) Body weight Heart rate Oxygen saturation Oxygen saturation in Arterial blood by Pulse oximetry Body temperature Systolic And Diastolic Provider Name and Address Organization Details Last Updated DateTime 4 163.83 cm 36.4 kg/m2 47410.7 6 g 103 /min 97 % 97 % 98.1 [degF] 123/79 mm[Hg] Kell Bryant [facility] 4 08:59:02 Date Recorded Body height Body mass index (BMI) Body weight Heart rate Oxygen saturation Oxygen saturation in Arterial blood by Pulse oximetry Body temperature Systolic And Diastolic Provider Name and Address Organization Details Last Updated DateTime 5 163.83 cm 36.7 kg/m2 57848.5 4 g 104 /min 97 % 97 % 98 [degF] 116/84 mm[Hg] Dixie Guerrero MA [facility] 5 08:30:54 Date Recorded Body height Body mass index (BMI) Body weight Heart rate Oxygen saturation Oxygen saturation in Arterial blood by Pulse oximetry Body temperature Systolic And Diastolic Provider Name and Address Organization Details Last Updated DateTime 4 163.83 cm 35.5 kg/m2 85654.4 g 102 /min 96 % 96 % 97.9 [degF] 120/80 mm[Hg] Kell Bryant MA [facility] 4 11:08:20 Date Recorded Heart rate Provider Name an d Address Organization Details Last Updated DateTime 12/31/2022 88 /min Cheikh Jang [address] [address], [place], [address], [facility] 12/31/2022 14:16:29 Date Recorded Body height Body mass index (BMI) Body weight Heart rate Oxygen saturation Oxygen saturation in Arterial blood by Pulse oximetry Body temperature Systolic And Diastolic Provider Name and Address Organization Details Last Updated DateTime 3 163.83 cm 35.3 kg/m2 62846.8 1 g 108 /min 98 % 98 % 98.1 [degF] 119/79 mm[Hg] Sonali oakley MA [facility] 3 13:23:01 Social History Question Answer Notes LastModified by Organizat ion Details LastModified Time Tobacco Smoking Status Former Smoker Quit 11/2016 Not Available [email or web address] 12/19/2019 03:36:43 Do You Have An Advance Directive? Yes HCP/ -Ad am Information not available 12/19/2021 Is Blood Transfusion Acceptable In An Emergency? Yes [id number] Information not available 12/19/2019 What Is Your Level Of Caffeine Consumption? Moderate 2 Half/decaf Cups Coffee Daily And 2 Soda Information not available 06/16/2022 How Much Tobacco Do You Chew? None [id number] Information not available 12/19/2019 In The 14 Days Before Symptom Onset, Have You Had Close Contact With A Laboratory-confir med COVID-19 While That Case Was Ill? No Information not available 12/19/2021 In The 14 Days Before Symptom Onset, Have You Had Close Contact With A Person Who Is Under Investigation For COVID-19 While That Person Was Ill? No Information not available 12/19/2021 Have You Been To An Area Known To Be High Risk For COVID-19? No Information not available 12/19/2021 What Type Of Diet Are You Following? REGULAR Information not available 06/16/2022 Which Illicit Or Recreational Drugs Have You Used? None [id number] Information not available 12/19/2019 When Did You Quit Smoking? 1-5yearssinc elastcigaret te [email or web address] Information not available 04/23/2020 Live Alone Or With Others? With Others (Humberto) And 2 Cats Information not available 12/19/2021 Do You Take Precautions To Prevent Distracted Driving? Yes Information not available 11/16/2014 How Often Do You Need To Have Someone Help You When You Read Instructions, Pamphlets, Or Other Written Material From Your Doctor Or Pharmacy? Never Information not available 11/16/2014 Have You Served In The ? No [email or web address] Information not available 11/21/2015 Have You Or Anyone In Your Household Had Any Of The Following Symptoms In The Last 14 Days: Sore Throat, Cough, Chills, Body Aches For Unknown Reasons, Shortness Of Breath For Unknown Reasons, Loss Of Smell, Loss Of Taste, Fever At Or Greater Than 100 Degrees Fahrenheit? No [email or web address] Information not available 10/31/2019 Are You Or Anyone In Your Household A Health Care Provider Or Emergency Responder? No [email or web address] Information not available 10/31/2019 To The Best Of Your Knowledge Have You Been In Close Proximity To Any Individual Who Tested Positive For COVID-19? No Information not available 10/31/2019 Have You Recently Traveled To A COVID-19 High Risk Area Or Gathering In The Last 10 Days? No [email or web address] Information not available 04/23/2020 What Was The Date Of Your Most Recent Tobacco Screening? 07/06/2024 [email or web address] Information not available 07/06/2024 How Many Children Do You Have? 0 [email or web address] Information not available 04/23/2020 Do You Use Protection During Sex? No [id number] Information not available 12/19/2019 Seat Belts Used Routinely Yes Information not available 12/19/2021 Are You Sexually Active? Yes [id number] Information not available 12/19/2019 Smoke Alarm In Home Yes Information not available 12/19/2021 At What Age Did You Start Smoking Tobacco? 27 [id number] Information not available 12/19/2019 Are You Passively Exposed To Smoke? No [email or web address] Information no t available 04/23/2020 How Much Tobacco Do You Smoke? No [email or web address] Information not available 04/23/2020 Do You Use Sunscreen Routinely? Yes [id number] Information not available 12/19/2019 How Many Years Have You Smoked Tobacco? 13 Information not available 04/23/2020 Sex: Unknown Functional Status Question Answer Note LastModified by Organizat ion Details LastModified Time Do you use any illicit or recreational drugs? No Information not available 07/05/2023 What is your level of alcohol consumption? None [id number] Information not available 12/19/2019 Do you or have you ever used smokeless tobacco? Never used smokeless tobacco [id number] Information not available 12/19/2019 Are you currently employed? No Information not available 07/05/2023 Are you able to walk? [email or web address] Information not available 12/19/2021 Are you able to care for yourself? Yes [id number] Information not available 12/19/2019 Do you or have you ever used e-cigarettes or vape? Never used electronic cigarettes Information not available 12/19/2021 What is your exercise level? Moderate 3-4 x week on exercise bike [email or web address] Information not available 07/06/2024 Mental Status None recorded. Family History Relationship Description Onset Age of this Age Resolved Age Notes LastModified by Organization Details LastModified Time Maternal Grandfather Malignant neoplastic disease Not available 2021 08:48:30 Father No current problems or disability Not available 12/19 08:48:30 Father Harmful pattern of use of alcohol [email or web address] Not available 04/23 08:31:01 Mother Lupus [email or web address] s 79 Not available 2021 08:48:30 Mother Sleep disorder [email or web address] Not available 04/23 08:31:01 Mother Liver problem Not available 04/23 08:31:01 Mother Depressive disorder [email or web address] Not available 04/23 08:31:01 Mother Heart disease [email or web address] Not available 04/23 08:31:01 Mother Immunodefici ency disorder [email or web address] Not available 04/23 08:31:01 Mother Arthritis [email or web address] Not availa ble 04/23/2020 08:31:01 Mother Migraine [email or web address] Not availab le 04/23/2020 08:31:01 Mother Rheumatoid arthritis Not available 2021 08:48:30 Mother Cirrhosis of liver [email or web address] Not available 07/04 09:28:06 Mother Renal failure syndrome 83 [email or web address] Not available 12/20 11:55:41 Unspecified Relation Allergy Not available 2020 08:31:01 Maternal Uncle Rheumatoid arthritis Not available 2021 08:48:30 Maternal Grandmother Rheumatoid arthritis Not available 2021 08:48:30 Medical History Condition Response Gout N Other Y Blood Diseases N Kidney Stones N Hyperthyroidism N Breast Cancer N Depression Y COPD N Lung Disease N Hypothyroidism N Defects or Inherited Disease N Anesthesia Complications N Headaches/Migraines Y Varicose Veins N Anxiety Disorder Y Obesity N Vision or Eye Problems N Arthritis Y Head Injury/Concussion N Polyps N Infertility N Congenital Anomalies N Acid Reflux (GERD) N Cancer N Stroke N ADHD N Endometriosis N High Cholesterol Y Liver Disease N Fibromyalgia Y Kidney Disease N Heart Problems N Ear or Hearing Problems N Hospitalizations N Thyroid Problems N GI Problems N Acne N Eating Disorder N Skin Problems N Anemia N Constipation Y Bladder Problems N Mental Illness N Ovarian Cancer N Diabetes N Blood Transfusions N Seizures/Epilepsy N Tuberculosis N AIDS/HIV N Congestive Heart Failure (CHF) N Eczema N Diverticulitis N Abuse/Domestic Violence N Asthma N Allergies Y Reflux/GERD N Hepatitis N Pulmonary Embolism N Hypertension N Chicken Pox N Autism Spectrum Disorder (ASD) N Osteoporosis N Gynecological History Statement/Question Response Abnormal Pap N Flow Moderate Date of Last Colonoscopy 04/18/2024 Most Recent Bone Density Sexually Active? Y Menses Monthly Y Duration of Flow (days) 5 Date of Last Pap Smear 05/24/2018 Most Recent Mammogram 07/21/2024 LMP Definite Obstetrics History GPAL:G 0 P 0 0 0 0 Immunizations Vaccine Type Date Status Note Provider Nam e and Address Organization Details Recorded Time Influenza, split virus, trivalent, preservative 6 completed Venus Capellan null, [facility] 02/22/2023 09:36:34 Influenza, split virus, quadrivalent, preservative 7 completed Venus Capellan [facility] 02/22/2023 09:36:33 Influenza, split virus, trivalent, preservative 8 [facility] 09:36:33 Influenza, MDCK, quadrivalent, preservative 9 completed Venusinge Capellan [facility] 02/22/2023 09:36:33 Influenza, split virus, quadrivalent, preservative 0 completed Venus Capellan [facility] 02/22/2023 09:36:33 COVID-19, mRNA, LNP-S, PF, 30 mcg/0.3 mL dose 0 completed Venus Capellan [facility] 02/22/2023 09:36:33 COVID-19, mRNA, LNP-S, PF, 30 mcg/0.3 mL dose 1 [facility] 09:36:33 COVID-19, mRNA, LNP-S, PF, 30 mcg/0.3 mL dose 1 [facility] 09:36:33 Influenza, MDCK, quadrivalent, PF 0 completed Venus Capellan [facility] 02/22/2023 09:36:33 COVID-19, mRNA, LNP-S, bivalent, PF, 30 mcg/0.3 mL dose 2 completed Venus ching, [facility] 02/22/2023 09:36:33 Influenza, split virus, quadrivalent, PF 5 completed Venus Capellan null, [facility] 02/22/2023 09:36:34 Influenza, MDCK, quadrivalent, preservative 1 completed Venus ching, [facility] 02/22/2023 09:36:33 Tdap 9 completed Venus Capellan [facility] 02/22/2023 09:36:33 Influenza, split virus, quadrivalent, PF 3 [facility] 09:36:34 COVID-19, mRNA, LNP-S, PF, 50 mcg/0.5 mL 4 completed Venus Capellan [facility] 11/15/2023 12:26:34 Influenza, split virus, trivalent, preservative 3 completed [place] Stevenson, [facility] 07/05/2023 08:51:29 zoster recombinant 4 completed Venus ching, [facility] 02/02/2024 09:28:24 SARS-COV-2 (COVID-19) vaccine, UNSPECIFIED 4 completed Venus ching, [facility] 11/15/2023 12:26:34 influenza nasal, unspecified formulation 4 completed Sue ching, [facility] 11/12/2023 15:48:39 COVID-19, mRNA, LNP-S, PF, anshul-sucrose, 30 mcg/0.3 mL 4 completed ZAHIDA Stevenson, [facility] 12/21/2023 10:59:12 Influenza, split virus, trivalent, PF 4 completed Kell Bryant MA null, [facility] 12/21/2023 10:59:13 zoster recombinant 4 completed Venus Capellan null, [facility] 02/02/2024 09:28:24 Influenza, split virus, trivalent, preservative 2 completed Venus Capellan null, [facility] 02/22/2023 09:36:33 Tdap 9 completed Venus Capellan null, [facility] 02/22/2023 09:36:33 pneumococcal polysaccharide PPV23 3 completed Venus Capellan null, [facility] 02/22/2023 09:36:33 Past Encounters Encounter ID Performer Location Encounter Start Date Encounter Closed Date Diagnosis/Indication Diagnosis SNOMED-CT Code Diagnosis ICD10 Code Diagnosis Note [id number] [facility] [address] [facility] [place] [address] 09/28/2011 00:00:00 [id number] [facility]Comm [facility] [address] [facility] [place] [address] 2011 00:00:00 [id number] [facility] [address] [facility] [place] [address] 10/09/2011 00:00:00 [id number] auto[facility]Comm erce [address] [facility] [place] [address] 10/15/2011 00:00:00 [id number] [facility]Comm [facility]ce [address] [facility] [place] [address] 12/02/2011 00:00:00 [id number] [facility] [address] [facility] [place] [address] 01/22/2012 00:00:00 [id number] [facility] [address] [facility] [place], [place] [address] 04/14/2012 00:00:00 [id number] [facility] [address] [facility] [place], [place] [address] 06/08/2012 00:00:00 [id number] auto[facility] [address] [facility] [place], [place] [address] 10/06/2012 00:00:00 [id number] auto[facility] [address] [facility] [place], [place] [address] 04/06/2013 00:00:00 [id number] [facility] [address] [facility] [place], [place] [address] 08/08/2013 00:00:00 [id number] [facility] [address] [facility] [place], [place] [address] 08/16/2013 00:00:00 [id number] Lucy Riley [facility] Main Office [address] [facility] [address] [place], [place] [address] 11/03/2013 09:43:45 11/03/2013 10:22:06 Adult health examination 335346172 Anxiety state 995192890 Depressive disorder 30464513 Neoplasm o f uncertain behavior of skin 18309566 [id number] Lucy Riley [facility] Main Office [address] [address] [place], [place] [address] 04/13/2014 08:48:39 04/13/2014 09:30:51 Pure hypercholesterolemia 231998139 Discussed diet and exercise at length with patient, she is having a hard time with exercise due to weather. Recommend even 10 minutes of activity daily to start and work her way up to 30 minutes 3-5 days/ week. Less meat, fatty food, processed foods, increase fruots and vegetables . Try eating vegetarian foods a couple of day per week. For now, will increase her lovastatin to 20mg daily. Also discussed smoking cessation, she quit for 7 months but started back up again during the holidays. She is starting a new job and will try patches. F/U in 6 months with repeat lipid panel. Anxiety state 279618310 Refill provided for her clonazepam Tobacco de pendence syndrome 25904943 Reviewed present motivation s for smoking cessation. Patient reports that being ready to attempt smoking cessation. Discussed options for support. [id number] Humberto Alex MD Main Office [address] [address] [place] [address] 04/26/2014 10:44:11 04/26/2014 11:25:16 Radicular syndrome of lower limbs 75721271 Question SIJ mediated pain vs lumbar spine disease as the cause. Will see if inflammati on treatment helps and if plain films show any SIJ disease. If normal and symptoms persistent /worse will need MRI. Consult PMR for PT advice and considerat ion of further interventi ons if persistent /worse. [id number] DAVID Julio Main Office [address] [place] [address] 11/16/2014 08:45:11 11/16/2014 09:29:33 Adult health examination 026738753 Z00.00 Patient will call for pap appointmen t, she will also schedule her mammogram, flu vaccine administer ed today. Will update immunizati on status and screen based on risk factors. Regular dental care, periodic eye examinatio ns, and safety measures advised. Distracted driving discussed. Needs infl uenza immunization 931969632 Z23 Pure hypercholesterolemia 635158186 E78.0 Tobacco de pendence syndrome 73462344 F17.290 Reviewed present motivation s for smoking cessation. Patient reports that being ready to attempt smoking cessation. Discussed options for support. She will be using the patch and starting her cessation process tomorrow. [id number] Rufina Troncoso PA-C Main Office [address] [place] [address] 05/29/2015 13:28:20 05/29/2015 13:51:32 Viral gastroenteritis 171870413 A08.4 Imodium PRN. Electrolyt e replacemen t with Gatorade and food as tolerated. Cough 00414415 R05 Pt. advised to take otc cough meds as needed. [id number] Humberto Alex MD Main Office [address] [address] [place] [address] 06/17/2015 08:02:43 06/17/2015 08:49:22 Anxiety state 673894145 F41.1 Well controlled . Pt planning to stop tobacco use so will continue meds as are for now. Pure hypercholesterolemia 801068569 E78.0 LDL at goal. Rx well tolerated. Continue current dose. Cough 61618756 R05 Typical for post infectious /flu state. Advised to call if persistent /worse. Expiratory wheezing 9763 007 R06.2 Also c/w post viral inflammati on. Has albuterol. [id number] Cheikh Troncoso PA-C Main Office [address] [place] [address] 11/21/2015 10:52:50 11/21/2015 12:14:26 Adult health examination 102438381 Z00.00 lipids nl last yr Cough 87282762 R05 check cxr r/o pna Body mass index 30+ - obesity 891835257 Z68.31 Tobacco de pendence syndrome 72979996 F17.290 [id number] DAVID Julio Main Office [address] [place] [address] 04/02/2016 08:43:07 04/02/2016 09:37:57 Malaise and fatigue 736773386 R53.83 Muscle pain 93972849 M79 .1 Nicotine a dverse reaction 289344651 T50.995A Diarrhea, insomnia, depression , myalgias - Suspect her sx are related to nicotine patch. She will decrease to 14 mg patch x 3 days, if sx persist will decrease to 7mg patch. If sx still presents in 1 week return for recheck. Will check blood work. Major depr essive disorder 528337777 F32.9 Continue current meds, sx likely acutely worse as a side effect of patch. recheck in 1 week if sx persist [id number] DAVID Julio Main Office [address] [address] [place] [address] 04/07/2016 13:56:52 04/07/2016 14:55:41 Malaise and fatigue 066814597 R53.83 will check additional blood work, patient instructed to decrease to 7mg nicotine patch and remove it on wednesday, no patch through the and f/u on wednesday for recheck. rest,. hydration, well balanced meals. [id number] Cheikh Troncoso PA-C Main Office [address] [facility] [address] [place] [address] 04/16/2016 10:26:47 04/16/2016 11:32:45 Malaise and fatigue 525114418 R53.81 persists, as well as myalgias/a rthralgias -- ? cause -- doubt tobacco withdrawal -- all labs NL x severely low vit D. p reviewed sxs. of vit D def - this is most likely cause of current sxs. pt so foggy - requests oow note Smoker 34287292 F17.203 see above, ? depression but pt has h/o this in past and current sxs feel different -- encouraged cont smoking cessation Vitamin D deficiency 347 39832 E55.9 cont supp q wk x 8 wks total then consider recheck level - around mid May [id number] Cheikh Troncoso PA-C Main Office [address] [facility] [address] [place] [address] 04/27/2016 11:31:36 04/27/2016 12:26:21 History of pain of multiple joints 384892729 Z87.39 see below 25 minute office visit with greater than 50% of the visit face-to-fa ce with the patient and/or family providing counseling and/or coordinati on of care. Malaise and fatigue 2717 20317 R53.81 persists, as well as myalgias/a rthralgias -- ? cause -- all labs NL x severely low vit D. pt so foggy - requests oow note sxs have persisted x ~ 6 weeks now - will recheck vit D level and get rheum eval encouraged pt to research std vs fmla d/t lenght of time oow - she states will pursue c her HR Vitamin D deficiency 347 28426 E55.9 cont supp q wk x 8 wks total - may need longer course of supp if levels still low, will convert to po supp if levels have normalized if neg w/u c rheum, may need to see endo Mixed anxi ety and depressive disorder 299398458 F41.8 ? contributi ng to above - pt declines, states current sxs different than past sxs [id number] Cheikh Troncoso PA-C Main Office [address] [facility] [address] [facility] [place] [address] 05/04/2016 13:40:06 05/04/2016 15:23:34 Syncope 925312998 R55 ? exertional / dehydratio n related x 1 --- none since, push fluids. If recurrent will need further neuro/card iac eval. Pain of mu ltiple joints 89956586 M25.50 pending see rheum Mixed anxi ety and depressive disorder 961451236 F41.8 cont lexapro and prn clonazepam ADDENDU Yuly - called pt 05/05 - ? if her symptoms are a side effect of lexapro? discussed top 10 side effects of lexapro and it does not appear that this is causing her symptoms - advised her she could consider discussing her symptoms c her pharmacist to see if they have any thoughts that her symptoms could be med related Vitamin D deficiency 347 87394 E55.9 cont po supp as dir [id number] Humberto Alex MD Main Office [address] [facility] [address] [facility] [place] [address] 05/28/2016 09:07:39 05/28/2016 10:07:08 Vitamin D deficiency 90443738 E55.9 Level now normal. Continue current supplement dose. Osteoarthritis 337188134 M19.90 Will try prescripti on NSAID and monitor for tolerance/ effectiven ess. Primary fi bromyalgia syndrome 68647809 M79.7 With this new diagnosis as well as inadequate ly controlled anxiety symptoms will try transition ing to agent that might have a more beneficial impact on both of these issues. Will alos consult neuro for additional recommenda tions. Increased/ regular physical activity advised. Generalize d anxiety disorder 75814760 F41.1 Discussed/ outlined slow wean off of escitalopr am while initiating venlafaxin e therapy. Will titrate dose as tolerated to desired symptom control. Advised to call with any problems. [id number] Humberto Alex MD Main Office [address] [facility] [address] [place] [address] 06/16/2016 08:59:03 06/16/2016 09:37:16 Fibromyalgia 768961291 M79.7 Symptoms improved with better mood stabilizat ion. Regular physical activity advised. Will follow. Generalize d anxiety disorder 46248583 F41.1 Discussed/ outlined slow wean off of escitalopr am while titrating venlafaxin e therapy. Will continue current dose for now. Advised to call with any problems. Note provided for work clearance. [id number] Humberto Alex MD Main Office [address] [address] [place] [address] 07/17/2016 12:33:01 07/17/2016 13:25:38 Generalized anxiety disorder 49920330 F41.1 Seems to be doing much better with SNRI. Will titrate dose as tolerated to desired symptom control. Advised to call with any problems. Fibromyalgia 754789514 M 79.7 Symptoms improved with better mood stabilizat ion. Regular physical activity advised. Will follow. [id number] Humberto Alex MD Main Office [address] [facility] [address] [place] [place] [address] 09/03/2016 12:48:09 09/03/2016 13:13:53 Generalized anxiety disorder 45187319 F41.1 Responding and tolerating current regimen well. Will continue dosing as is. Primary fi bromyalgia syndrome 24114859 M79.7 Symptoms improved on SNRI alone. Will continue current dosing. Allergic conjunctivitis 219115162 H10.13 Advised to add antihistam ine if symptoms persist/wo rsen. [id number] Humberto Alex MD Main Office [address] [address] [place] [address] 10/22/2016 09:27:02 10/22/2016 10:15:21 Acute sinusitis 11422535 J01.90 Pt will continue allergy rx (including nasal steroid) as well as start nasal saline irrigation . Will cover with doxy for possible atypical organisms in light of continued tobacco use. Common/ser ious potnetial medication side effects discussed. Advised to call if noted or inb/worse. Sinus imaging and broader abx coverage might then be needed. [id number] Humberto Alex MD Main Office [address] [address] [place] [address] 12/23/2016 09:06:47 12/23/2016 10:37:57 Generalized anxiety disorder 75959440 F41.1 Responding and tolerating current regimen well. Will continue dosing as is. Depressive disorder 3541 9007 F33.42 Vitamin D deficiency 347 21443 E55.9 Level now normal. Continue current supplement dose. Adult heal th examination 579846214 Z00.00 Immunizati on status utd. Will screen based on risk factors. Regular dental and ophtho care advised as well as seat belt and sunscreen use. Distracted driving discussed. Advance directives discussed, HCP form provided. Pure hypercholesterolemia 537280004 E78.00 Will reassess off of statin and now that she is no longer smoking see what her CVD risk score is then discuss treatment options. Obesity 438740267 E66.9 Body mass index 30+ - obesity 242488695 Z68.30 [id number] Humberto Alex MD Main Office [address] [facility] [address] [place] [address] 04/01/2017 09:02:34 04/01/2017 10:10:40 Generalized anxiety disorder 16368657 F41.1 Responding and tolerating current regimen well. Will continue dosing as is. Depressive disorder 4061 5664 F33.42 Pure hypercholesterolemia 452080501 E78.00 Will reassess off of statin, and discuss mgmt based on CVD risk score. Vitamin D deficiency 347 76971 E55.9 Level has been normal. Continue current supplement dose. Insomnia 781139913 G47.0 0 Peripheral pterygium 952 03608 H11.049 Printed pt info provided from [facility] Dysplastic nevus of skin 792258922 D22.9 Will ask derm to consider biopsy/rem oval. [id number] Humberto Alex MD Main Office [address] [facility] [address] [facility] [place] [address] 09/09/2017 13:11:55 09/09/2017 14:09:03 Generalized anxiety disorder 01867483 F41.1 Having increased stress around pending legal issues, but overall coping fairly well. Advised ok to use benzo BID if needed. Will continue venlafaxin e at current dose for now. Depressive disorder 7916 0092 F33.42 Advised to call if symptoms worsen. Insomnia d isorder related to another mental disorder 45693193 F51.05 F99 Stable on trazodone. [id number] DAVID Julio Main Office [address] [facility] [address] [place] [address] 10/28/2017 13:25:06 10/28/2017 13:54:06 Otitis media 49821598 H66.91 amox as directed, hydration, rest, tylenol or ibuprofen as needed. Allergic rhinitis 840144 04 J30.9 [id number] DAVID Julio Main Office [address] [facility] [address] [facility] [place] [address] 02/22/2018 13:57:45 02/22/2018 14:26:12 Fever 957265038 R50.9 negative rapid Influenza- like symptoms 740004389 R68.89 Rapid flu negative but based on hx and exam today will tx with tamiflu for possible flu. hydration, rest, tylenol/ ibuprofen as needed. [id number] Humberto Alex MD Main Office [address] [facility] 207 [place] [address] 03/23/2018 10:29:38 03/23/2018 11:31:08 Adult health examination 576168162 Z00.00 Immunizati on status updated. Will screen based on risk factors. Regular dental and ophtho care advised as well as seat belt and sunscreen use. Distracted driving discussed. Advance directives discussed and in place. Administra tion of viral vaccine 38460011 Z23 Screening for malignant neoplasm of breast 117517473 Z12.39 Going in April for mammogram. Screening for malignant neoplasm of cervix 399072509 Z12.4 Having menses today. Will f/u for PAP at next visit. Migraine 71137132 G43.90 [address] Scott but I suspect that topiramate if affording her somnolence . WIll reduce the dose. Has appt with neuro next week. Depressive disorder 3548 9007 F33.42 Well controlled , continue current regimen. Dyspnea 335259085 R06.02 ? if related to deconditio aditya vs intermitte nt asthma less likely PE. WIll see if bronchodil ator before exercise helps with symptoms. If d-dimer elevated will image. Obesity 935223106 E66.9 Z68.30 Fatigue 33073346 R53.83 Screen for metabolic etiology but suspect that meds are contributi ng. Sleep apnea seems unlikely. Vitamin D deficiency 347 71180 E55.9 Level was normal. Continue current supplement dose, and reassess control. Pure hypercholesterolemia 892360947 E78.00 Will reassess off of statin, and discuss mgmt based on CVD risk score. [id number] Humberto Alex MD Main Office [address] [address] [place] [address] 05/24/2018 13:58:27 05/24/2018 15:21:43 Sampling of vagina for Papanicolaou smear 426046972 Z01.419 Unremarkab le exam. If cytology normal and HPV negative will defer to q5yr frequency. Migraine 80367750 G43.90 9 Having migraine actively and using tryptan and new injectable med without relief. Seeing neuro tommorrow. Will screen for JIGAR and rule out intracrani al process given worsening frequency and intensity. Snoring symptoms 3169238 00 R06.83 Headache 75750652 R51 Worsening without history of imaging. [id number] Humberto Alex MD Main Office [address] [address] [place] [address] 10/04/2018 11:20:48 10/04/2018 12:09:55 Generalized anxiety disorder 83948037 F41.1 Having increased stress around pending legal issues, but overall coping fairly well. Advised ok to use benzo BID if needed. Will continue venlafaxin e at current dose for now. Depressive disorder 3024 9007 F33.42 Well controlled , continue current regimen. Sleep apnea 01023930 G47 .30 Has CPAP and tolerating well. Seems to be improving symptoms. Migraine 75412410 G43.90 9 Stable/imp roving, suspect that JIGAR treatment is a factor. Following with neuro. [id number] Humberto Alex MD Main Office [address] [address] [place] [address] 04/18/2019 08:45:36 04/18/2019 09:49:46 Adult health examination 655335106 Z00.00 Immunizati on status utd. Will screen based on risk factors. Regular dental and ophtho care advised as well as seat belt and sunscreen use. Distracted driving discussed. Advance directives discussed and in place. Screening for malignant neoplasm of breast 026183708 Z12.39 Screening utd. Depressive disorder 3511 2327 F32.4 Fair control on current meds. Mostly aggravated by frustratio n from her migraines which she is working through with support group. Pure hypercholesterolemia 640796154 E78.00 Will monitor off of statin, and discuss mgmt based on CVD risk score. Sleep apnea 27566792 G47 .30 Has CPAP and tolerating well. Seems to be improving symptoms. Vitamin D deficiency 347 52361 E55.9 Level was normal. Continue current supplement dose, and reassess control. Screening for malignant neoplasm of cervix 341225043 Z12.4 Due for PAP in 2021 Migraine 19757552 G43.90 9 Working with neuro. Fair control. Obesity 012937131 E66.9 Z68.30 Fatigue 19523673 R53.83 Screen for metabolic etiology but suspect that meds are contributi ng. Mild inter mittent asthma 766175913 J45.20 Using bronchodil ator with relief before exercise. Will monitor. [id number] Jason Silverio MD [facility] [address] [facility] 207 [place] [address] 06/28/2019 11:49:47 06/28/2019 15:23:15 Exposure to SARS-CoV-2 076657591 Z20.828 Isolation and COVID-19 testing are recommende d . Exposure t o viral disease 9007207835 41790 Z03.818 Acute sinusitis 20725531 J01.90 Start abx as directed, continue rhinocort spray , add nasal saline solution BID and continue claritin. [id number] Humberto Alex MD Main Office [address] [facility] [address] [place] [address] 08/01/2019 08:48:48 08/01/2019 09:51:21 Butterfly rash 63591479 R21 With constellat ion of symptoms and now family history will check labs. Refer back to rheum if abnormal. Pain of mu ltiple joints 13542113 M25.50 If labs unremarkab le will continue managing as FMS Fatigue 60997417 R53.83 Screen for metabolic etiology but suspect that meds are contributi ng. Has labs pending from April. [id number] Humberto Alex MD [facility] [address] [facility] [address] [place] [address] 10/31/2019 13:09:49 10/31/2019 16:09:09 Bacterial conjunctivitis 552609050 H10.9 cont c moist heat, trial c abx ointment - if worse / no better, then encouraged pt to call us or her eye [id number] Humberto Alex MD Tele[facility] [address] [facility] [address] [place] [address] 01/18/2020 12:15:19 01/18/2020 16:42:51 Headache 32836115 R51.9 Counseling 582150565 Z71 .9 Health advice, education or counseling done for COVID 19 Exposure t o viral disease 9012330257 11329 Z03.818 Fatigue 65657060 R53.83 Cervical lymphadenopathy 888615794 R59.0 advised pt to go to [facility] for xrays, labs Pain of mu ltiple joints 26437177 M25.50 [id number] Humberto Alex MD Main Office [address] [facility] [address] [place] [address] 04/23/2020 08:29:23 04/23/2020 09:15:19 Adult health examination 409167305 Z00.00 Immunizati on status utd. Will screen based on risk factors. Regular dental and ophtho care advised as well as seat belt and sunscreen use. Distracted driving discussed. Advance directives discussed and in place. Screening for malignant neoplasm of breast 520788705 Z12.39 Screening utd. Depressive disorder 3548 9007 F32.4 Fair control on current meds. Currently flaring because of upcoming visit with her estranged mother. Wonder if there is some somatizati on going on. Pure hypercholesterolemia 268638922 E78.01 Will monitor off of statin, and discuss mgmt based on CVD risk score. Sleep apnea 42454080 G47 .30 Has CPAP and tolerating well. Seems to be improving symptoms. Vitamin D deficiency 347 84770 E55.9 Level was normal. Continue current supplement dose, and reassess control. Screening for malignant neoplasm of cervix 258317155 Z12.4 Due for PAP in 2021 Migraine 98436863 G43.90 9 Working with neuro. Receiving botox. Fair control. Obesity 118048259 E66.9 Z68.30 Fatigue 52302377 R53.83 Screen for metabolic etiology but suspect that meds are contributi ng. Mild inter mittent asthma 621416025 J45.20 Using bronchodil ator with relief before exercise. Will monitor. Elevated blood-pressure reading without diagnosis of hypertension 577181709 R03.0 Body mass index 30+ - obesity 806564765 E66.9 Z68.35 Paresthesi a of upper limb 16522655 R20.2 Screen for metabolic etiologies . Neck swelling 954699068 R22.1 [id number] Humberto Alex MD Main Office [address] [address] [place] [address] 07/09/2020 09:52:16 07/09/2020 10:33:11 Essential hypertension 78088869 I10 Likely diet related, but given persistent will see if diuretic helps. Advised of common/ser ious potential side effects and to call with any problems. Will go for labs 2 weeks after starting. [place] hump 57682160 R2 2.2 Given comorbid JIGAR I suspect this is likely from obesity. Will screen for adrenal disease/cu shings. Weight loss approaches discussed. Will monitor. [id number] Humberto Alex MD Main Office [address] [address] [place] [address] 09/10/2020 10:38:14 09/10/2020 11:33:33 Hypertensive disorder 97486966 I10 Well controlled , will see if 1/2 tablet affords adequate control of both these issues and mitigated the hypokalemi a Hypokalemia 41803756 E87 .6 Screen for hyper ever state. [id number] Brannon Berman MD Main Office [address] [address] [place] [address] 02/21/2021 15:17:53 02/21/2021 16:04:24 Acute maxillary sinusitis 67465813 J01.00 [id number] Humberto Alex MD Main Office [address] [address] [place] [place] [address] 03/27/2021 08:46:47 03/27/2021 09:47:40 Adult health examination 524011231 Z00.00 Immunizati on status utd. Will screen based on risk factors. Regular dental and ophtho care advised as well as seat belt and sunscreen use. Distracted driving discussed. Advance directives discussed and in place. Body mass index 30+ - obesity 530848792 E66.9 Z68.34 Primary fi bromyalgia syndrome 01595028 M79.7 Symptoms stable, regular exercise and good dietary habits encouraged . Pure hypercholesterolemia 302131256 E78.01 Will monitor off of statin, and discuss mgmt based on CVD risk score. Vitamin D deficiency 347 63826 E55.9 Level was normal. Continue current supplement dose. Sleep apnea 02231610 G47 .30 Has CPAP and tolerating well. Seems to be improving symptoms. Fatigue 26579194 R53.83 Screen for metabolic etiology but suspect that meds are contributi ng. Pain of mu ltiple joints 74425685 M25.50 Pt requesting rheum f/u given recent family history that came to light. [id number] Humberto Alex MD Main Office [address] [facility] [address] [place] [address] 11/04/2021 12:33:33 11/04/2021 13:32:21 Generalized anxiety disorder 70632040 F41.1 Having increased stress around her persistent chronic health issues. Will try titrating venlafaxin e at current dose for now. Depressive disorder 7708 6045 F32.4 Fair control on current meds, see if venlafaxin e dose titration helps. Primary fi bromyalgia syndrome 50556856 M79.7 Symptoms stable, regular exercise and good dietary habits encouraged . Sleep apnea 35783348 G47 .30 Has CPAP is compliant and tolerating well. Seems to help symptoms. [id number] Humberto Alex MD Tele[facility] [address] [facility] [address] [place] [address] 12/19/2021 08:48:11 12/19/2021 09:41:06 Generalized anxiety disorder 37942151 F41.1 Having increased stress around her persistent chronic health issues particular ly migraines. Venlafaxin e dose titration helping somewhat. Has not tried a mood stabilizer . Depressive disorder 1470 5113 F32.4 Encouraged to continue working with therapist. Migraine 09624317 G43.90 9 Working with neuro, compliant with CPAP, staying hydrated and avoiding trigger foods. Never tried on lamictal. WIll see if it helps with this and her mood. If helping may be able to wean down trazodone which may not be helping this issue. Hypertensive disorder 38 432856 I10 Well controlled at last visit on lower dose with electrolyt e normalizat ion. Will continue current dose. [id number] Humberto Alex MD Main Office [address] [facility] [address] [facility] [place] [address] 06/16/2022 09:53:44 06/16/2022 11:10:27 Adult health examination 413969356 Z00.00 Immunizati on status utd. Will screen based on risk factors. Regular dental and ophtho care advised as well as seat belt and sunscreen use. Distracted driving discussed. Advance directives discussed and in place. Body mass index 30+ - obesity 558717212 E66.9 Z68.35 Primary fi bromyalgia syndrome 77937706 M79.7 Symptoms stable, regular exercise and good dietary habits encouraged . Pure hypercholesterolemia 823299108 E78.01 Will monitor off of statin, and discuss mgmt based on CVD risk score. Vitamin D deficiency 347 78568 E55.9 Level was normal. Continue current supplement dose. Sleep apnea 16593167 G47 .30 Has CPAP and tolerating well. Fatigue 79780646 R53.83 Screen for metabolic etiology but suspect that meds are contributi ng. Depressive disorder 4468 9007 F32.4 Encouraged to continue working with therapist. Generalize d anxiety disorder 08056489 F41.1 Having increased stress around her persistent chronic health issues particular ly migraines. Venlafaxin e dose titration helping somewhat. Has not tried a mood stabilizer . Hepatitis C screening 41 9530333 Z11.59 Dermatocha lasis of left upper eyelid 5095614701 11151 H02.834 Screening for malignant neoplasm of colon 350206872 Z12.11 Due for screening under new guidelines . Asymptomat ic. [id number] Humberto Alex MD Main Office [address] [facility] [address] [place] [address] 12/31/2022 13:13:50 12/31/2022 14:26:01 Generalized anxiety disorder 04198489 F41.1 stable on eddi/phq, cont meds as dir, used to see therapist last year - if worse, then consider again Depressive disorder 6638 9007 F32.0 see above [facility] hypothyroidism 78127550 E02 stable, offered reassuranc e, cont to monitor periodical ly Mixed hyperlipidemia 267 584630 E78.2 rec low carb diet to lower trigs, and decrease your red meat intake to lower your LDL (bad chol) Migraine 23121524 G43.90 9 cont f/u c neurologis t, cont meds as dir, cont migraine support wkly [id number] Humberto Alex MD Main Office [address] [facility] [address] [facility] [place] [address] 03/25/2023 12:34:34 03/25/2023 13:13:55 Depressive disorder 79609217 F32.0 Encouraged to establish with new therapist. Fibromyalgia 744528210 M 79.7 Chronic /limiting despite regular physical activity as much as tolerated. Sleep apnea 95556506 G47 .30 Has CPAP and tolerating well. Permanentl y unable to perform work activities due to medical condition 245393049 Z56.89 She seems to be extremely limited from being able to work with her chronic medical conditions . She will be contacting [facility] to determine her eligibilit y. We will provide any records that are requested appropriat odalis. [id number] Humberto Alex MD Main Office [address] [facility] [address] [place] [address] 07/05/2023 08:44:37 07/05/2023 09:44:48 Adult health examination 494875361 Z00.00 Immunizati on status utd. Will screen based on risk factors. Regular dental and ophtho care advised as well as seat belt and sunscreen use. Distracted driving discussed. Advance directives discussed and in place. Body mass index 30+ - obesity 118224254 E66.9 Z68.36 Primary fi bromyalgia syndrome 16249578 M79.7 Symptoms stable, regular exercise and good dietary habits encouraged . Pure hypercholesterolemia 738245746 E78.01 Will monitor off of statin, and discuss mgmt based on CVD risk score. Vitamin D deficiency 347 91855 E55.9 Level was normal. Continue current supplement dose. Sleep apnea 89131434 G47 .30 Has CPAP and tolerating well. Depressive disorder 3548 9007 F32.4 Encouraged to continue working with therapist. Generalize d anxiety disorder 00356324 F41.1 Having increased stress around her persistent chronic health issues particular ly migraines. Venlafaxin e dose titration helping somewhat. Has not tried a mood stabilizer . Screening for malignant neoplasm of colon 387492866 Z12.11 Due for screening under new guidelines . Asymptomat ic. Migraine 26218615 G43.90 9 Working with neuro, compliant with CPAP, staying hydrated and avoiding trigger foods. 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 Subclinica l hypothyroidism 22872994 E02 Will monitor. Menometrorrhagia 8953521 08 N92.1 Overdue for routine PAP and needs eval of this issue. Advised to schedule with wine sales representative evens. Thanks. Screening for malignant neoplasm of cervix 285723447 Z12.4 Overdue for PAP in 2021 [id number] Humberto Alex MD Main Office [address] [facility] [address] [place] [address] 12/21/2023 10:51:49 12/21/2023 12:08:37 Generalized anxiety disorder 91478995 F41.1 Confirmed by 2 separate rheumatolo gists in the past. Having increased stress around her persistent chronic health issues, recent passing of her mother and chronic migraines. On maximum dose of venlafaxin e but not working well. Escitalopr am not effective in the past. Brief trial of lamotrigin e prescribed in 2021 but not sure that patient gave it a fair try. Sleep apnea 69581355 G47 .30 Has CPAP, tolerating well, and managed by sleep medicine. Primary fi bromyalgia syndrome 00519323 M79.7 Symptoms persistent , regular exercise and good dietary habits encouraged . Migraine 79469663 G43.90 9 Working with neuro, compliant with CPAP, staying hydrated and avoiding trigger foods. States that this issue along with chronic neck pain are the primary driving forces behind her pursuing disability . Will request neurology notes to hopefully document the degree to which they think this issue is disabling her. 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 I will arrange EMG to see if it confirms and localizes neuropathy to either cspine or brachial plexus disease. Depressive disorder 9185 5709 F32.0 Needs therapist and will ask psychiatry for consultati on and guidance regarding other medical therapeuti c options. Permanentl y unable to perform work activities due to medical condition 360117529 Z56.89 She seems to be extremely limited and unable to work with her chronic medical conditions . She is in the process of pursuing LTD/SSD. We will provide any records that are requested appropriat odalis. [id number] Humberto Alex MD Main Office [address] [place], [place] [address] 07/06/2024 08:22:38 07/06/2024 09:24:21 Adult health examination [id number] Z00.00 PCV20 advised via local pharmacy. Will screen based on risk factors. Regular dental and ophtho care advised as well as seat belt and sunscreen use. Distracted driving discussed. Advance directives discussed and in place. Body mass index 30+ - obesity [id number] E66.9 Z68.36 Primary fi bromyalgia syndrome [id number] M79.7 Symptoms stable, regular exercise and good dietary habits encouraged . Pure hypercholesterolemia [id number] E78.01 Will monitor off of statin, and discuss mgmt based on CVD risk score. Vitamin D deficiency [id number] E55.9 Level was normal. Continue current supplement dose. Sleep apnea [id number] G47 .30 Has CPAP and tolerating well. Depressive disorder [id number] F32.4 Working with a therapist, in a better spot emotionall y. Generalize d anxiety disorder [id number] F41.1 Well controlled currently. Will try to wean benzo dosing and start with reducing evening dose. Given trazodone and TCA therapy will check ECG and avoid adding hydralazin e. Migraine [id number] G43.90 9 Working with neuro, compliant with CPAP, staying hydrated and avoiding trigger foods. Subclinica l hypothyroidism [id number] E02 Feeling better on supplement . Will verify dose if appropriat e biochemica lly. Screening for malignant neoplasm of cervix [id number] Z12.4 Had PAP last Fall, will request report. Administra tion of pneumococcal vaccine [id number] Z23 Drug therapy finding [id number] T88.7XXA Health Concerns Section Related Observation LastModified by Organization Detai ls LastModified Time None Recorded Concern Status LastModified by Organization Details LastModified Time None Recorded Advance Directives Directive Y: HCP/ -Humberto Payers Insurance Date Sequence Insurance Name Policy Number Policy Zarco Covered Member ID Zarco Member ID Guarantor Name 07/06/2024 1 [employer] [id number] Chelita Roach [id number] Humberto Hoangeron 04/26/2016 2 [facility] ([facility] [id number] Humberto Flanagann [id number] Humberto Flanagann 07/18/2024 1 [facility] ([facility] [id number] Humberto Hoangeron [id number] CN Humberto Flanagann Notes Date Note Type Note Provider Name and Address Organization Details Recorded Time 12/31/2022 text/html Anxiety/Depressi onRepo rted bypatient.Quality:symp toms improved Severity:denies suicidal ideations Context:major life stressors Associated Symptoms:denies homicidal ideations here for f/u visit reviewed recent labs c pt Cheikh Troncoso PA-C [address], [address], [facility] 01/02/2023 15:35:07 03/25/2023 text/html Anxiety/Depressi onRepo rted bypatient.Quality:mood worse;increased anxiety Severity:denies suicidal ideations; able to maintain relationships; does not interfere with activities of daily living Context:major life stressors(health issues) Associated Symptoms:denies homicidal ideations; no significant weight gain; no significant weight lossNotes:On venlafaxine 225mg, not working with therapist currently, previous retired.FibromyalgiaRe ported bypatient.Frequencyint ermittent Timing:no change during the day Duration7 years Location:diffuse Severity:day to day Pain in Joints or Muscles:pain of joints or muscles Associated Symptoms:fatigue;sleep disorders;chronic headaches;pain with menstruation;dizziness ;lightheadedness;abnor mal skin sensitivityNotes:Her ability to function/work over the past several years has declined. 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 This and her chronic migraines for which she has been treated for by neurology with botox. Numerous oral medication trials were not effective.HeadacheRepo rted bypatient.Location:uni lateral Quality:similar to previous headaches Severity:moderate Onset/Timing:gradual Context:not related to trauma Associated Symptoms:vomiting;phot ophobia;blind spots;slurred speech;double vision;motor paralysisNotes:This and her chronic migraines for which she has been treated for by neurology with botox. Numerous oral medication trials were not effective. Humberto Alex MD [address] [facility] [address], [place], [address], [facility] 03/25/2023 13:24:00 07/05/2023 text/html Generic HPI TemplateReported bypatient.Notes:Here for a physical. Feels well. Up to date with routine dental and ophtho care. Humberto Alex MD [address] [facility] [address], [place], [address], [facility] 07/05/2023 09:49:40 12/21/2023 text/html Anxiety/Depressi onRepo rted bypatient.Quality:mood worse;increased anxiety Severity:denies suicidal ideations; able to maintain relationships; does not interfere with activities of daily living Context:major life stressors(health issues) Associated Symptoms:denies homicidal ideations; no significant weight gain; no significant weight lossNotes:On venlafaxine 225mg, participating in support groups but still not working with therapist. Her biologic mother last month at age 81 from renal failure ultimately.Fibromyalgi aReported bypatient.Frequencycon stant Timing:no change during the day Duration8 years Location:diffuse Severity:day to day Pain in Joints or Muscles:pain of joints or muscles Associated Symptoms:fatigue;sleep disorders;chronic headaches;pain with menstruation;dizziness ;lightheadedness;abnor mal skin sensitivityNotes:Her ability to function/work over the past 8 years has declined. 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 This and her chronic migraines for which she has been treated for by neurology with botox. Numerous oral medication trials were not effective.In process of pursuing SD so follow up back imaging was requested and doene of thoracic and lumbar spine which were largely unremarkable. Had mild cervical spine disease on imaging in 2019. Has lipomas in her neck-should regions which were assessed by derm and general surgery in the past without interventions being recommended.HeadacheRe ported bypatient.Location:uni lateral Quality:similar to previous headaches Severity:moderate Onset/Timing:gradual Context:not related to trauma Associated Symptoms:vomiting;phot ophobia;blind spots;slurred speech;double vision;motor paralysisNotes:This and her chronic migraines for which she has been treated for by neurology with botox. Numerous oral medication trials were not effective. No recent neuro notes available to attest to the extent of her migraines affording disability. Humberto Alex MD [address] [facility] [address], [place], [address], [facility] 12/21/2023 13:07:44 07/06/2024 text/html Generic HPI TemplateReported bypatient.Notes:Here for a physical. Feels well. Up to date with routine dental and ophtho care. Humberto Alex MD [address] [facility] [address], [place], [address], [facility] 07/06/2024 09:16:10 OBGyn Episode No OBEpisode recorded.
--- NOTE | 2024-08-29 10:41 | MHC.OFFVIS ---
Intake Visit Reasons: Botox 200 units Migraine Allergies Codeine Phosphate Allergy (Unknown, Uncoded 08/25/24 13:34) Unknown Codeine Sulfate Allergy (Unknown, Uncoded 08/25/24 13:34) Unknown HPI Comments Details: She is here for Botox inj for chr . migraine. Botox on? 2024 has helped significantly with migraine frequency and severity. Migraines are associated with visual aura, photophobia, sonophobia, nausea, and vertigo. She will need to lay down in dark, quiet room and puts ice pack on head. Having Parsonage-Downey flare-up for last month with pain starting from left side of neck down left arm, with most pain in left shoulder. Has some weakness and numbness to LUE. She is left-handed. Using immobilizer. Not sleeping well because of pain and has been having more headaches lately. 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 She was treated with steroids which helped. Fibromyalgia pains slightly worse in colder weather. As Botox is wearing off she is getting more?severe migraines 2-3x/week with photophobia, sonophobia, nausea, and vertigo. Sumatriptan as needed helps some. [employer] worked for her, but insurance is not covering and wanted her to try Botox. Topiramate helped reduce frequency from 18 migraines/month to 11/month and reduced intensity, but she had intolerable side effects and stopped it. Started with generalized muscle and joint soreness/pain and feeling exhausted at the end of 03/2016. When it initially started, she had low-grade fever and swelling in her knees, ankles, and right elbow. She had labs for rheumatoid arthritis, lupus, Lyme disease, thyroid, CPK, and sed rate which were all normal. Hx of migraines with visual aura that occurred during her childhood and subsided for period of time. Migraines are mostly premenstrual and are associated with nausea and vomiting. Hx of anxiety, depression, and whiplash in 2011 for which she saw chiropractor. Botulinum toxin injection for chronic migraine? Consent:?After informed consent was obtained explaining risks, benefits, side-effects and alternatives, under aseptic precautions, the scalp areas and forehead were prepped and injected according to the following protocol.? Prep:?Botulinum Toxin was reconstituted in the usual manner with preservative-free normal saline.? Muscles & Units Injected: ?200 units of Botox were injected under aseptic precautions in the procerus, department operations manager, frontalis x 5, temporalis x 4, occipitalis x 2, and upper cervical paraspinal muscles and trapezius x2 on each side.? Post-Procedure?The patient tolerated the procedure well. There was no blood loss or adverse effect. The patient will make a follow-up appointment in 3-4 weeks.? [facility] Medical History (Updated 08/29/24 @ 10:56 by Porfirio Scott MD) Osteoarthritis Dizziness Cervical spondylosis JIGAR on CPAP Migraine Depression Fibromyalgia Family History (Updated 08/25/24 @ 13:37 by Ora Julian MA) Mother Migraine Review of Systems Const Details: General/Constitutional:? Change in appetitedenies.? Chillsdenies.? Fatiguedenies.? Feverdenies.? Weight gaindenies.? Weight lossdenies. ???Sleep:? Difficulty getting to sleepdenies.? Difficulty maintaining sleepadmits.? Urge to move legsadmits.? Teeth grindingadmits.? Shouting or Kicking during sleepdenies.? Abnormal behavior during sleepdenies.? Excessive sleepdenies.? Snoringdenies.? Daytime sleepinessdenies. ???Respiratory:? Shortness of breathdenies.? Chest paindenies.? Coughdenies. ???Cardiovascular:? Chest pain at restdenies.? Chest pain with exertiondenies.? Claudicationdenies.? Dizzinessdenies.? Fluid accumulation in the legsdenies.? Irregular heartbeatdenies.? Palpitationsdenies. ???Gastrointestinal:? Abdominal paindenies.? Constipationdenies.? Diarrheadenies.? Difficulty swallowingdenies.? Heartburnadmits.? Nauseaadmits.? Rectal bleedingdenies. ???Genitourinary:? Frequent urinationdenies.? Urgencydenies.? Incontinencedenies.? Erectile Dysfunctiondenies. ???Musculoskeletal:? Neck painadmits.? Back painadmits.? Muscle achesadmits.? Painful jointsadmits.? Sciaticadenies.? Weaknessdenies. ???Neurologic:? Difficulty swallowingdenies.? Balance difficultydenies.? Coordinationnormal.? Difficulty speakingdenies.? Dizzinessadmits.? Faintingdenies.? Gait abnormalitydenies.? Headacheadmits.? Loss of strengthdenies.? Loss of use of extremitydenies.? Low back paindenies.? Memory lossdenies.? Seizuresdenies.? Ticsdenies.? Tingling/NumbnessHands.? Transient loss of visiondenies.? Tremordenies. ???Psychiatric:? Anxietyadmits.? Auditory/visual hallucinationsdenies.? Delusionsdenies.? Depressed moodadmits.? Stressorsadmits.? Substance abusedenies.? Suicidal thoughtsdenies. Physical Exam Neuro Other: Neurological: Abnormal neurological findings:??Generalized muscle tenderness particularly in the upper extremities. Slow in responses. Increased left upper limb weakness.?Mental Status:??alert and oriented X 3,?Normal attention, orientation, memory and affect.?Cranial Nerves:??Pupils are equal, round and reactive to light. Fundoscopy shows normal disc bilaterally. External occular muscles are intact. Visual cardenas are full, no ptosis. Face is symmetrical, no facial weakness or droop. Facial sensations are normal. Tongue protrudes in midline. Palate elevates symmetrically. Shoulder shrugging is normal..?Motor Examination:??Normal muscle tone, bulk and strength,?No atrophy or fasciculations,?No drift of the extended upper extremities,?Deep tendon reflexes are 2+?,?Plantars are flexor?.?Straight Leg Raising:??90 degrees.?Sensory Exam:??Normal light touch, temperature, pinprick, vibration and joint-position sensations?,?Rhomberg sign is absent.?Coordination:??no ataxia,?no titubation,?kykcfc-ya-jffa, csyq-ogxq-frdp test and rapid alternating movements were normal.?Gait Exam:??Within normal limits.?Cerebellar Signs:??Uabcwq-lt-denr and udiz-wb-oprj is normal,?no dysdiadochokinesia?.?Extrapyramidal System:??No tremor, rigidity with normal facial expressions,?No bradykinesia, no bradyphrenia. Normal arm swing and posture. No propulsion or retropulsion.?Speech:??Normal,?no dysphasia or dysarthria..? Mini Mental Status Exam: Level of Consciousness:??Alert.?Orientation:??Knows correct year, month, date, day and season,?Knows correct city, county and state. Knows correct location and floor.?Registration:??Able to register 3 objects.?Attention:??Serial 7's performed accurately.?Recall:??Able to recall 3 out of 3 objects.?Language:??Normal spontaneous speech, fluency, repetition,naming, comprehension, reading and writing.?Total Score:??30/30.? General Examination: GENERAL APPEARANCE:??normal,?in no acute distress.?HEART:??S1, S2 normal,?no murmurs.?LUNGS:??clear anteriorly and posteriorly.?MUSCULOSKELETAL:??normal.?EXTREMITIES:??no edema.?PSYCH:??alert, oriented,?cognitive function intact,?cooperative with exam.? Assessment & Plan Assessment & Plan (1) Migraine: Code(s): G43.909 - Migraine, unspecified, not intractable, without status migrainosus Category: Medical Plan Botox injected for chr migraine a sper procedure note above. Coding Level of Care Code Est Pt Level 1 (36465) Diagnoses Migraine G43.909
== END 2024-08-29 10:51 | disposition home or self-care (01) ==
LOC: HO.HSM 09:41
PROVIDERS: PCP Pediatrics; Referring Provider Pediatrics; Visit Provider Psychiatry & Neurology Neurology
DX: G43.909 Migraine, unspecified, not intractable, without status migrainosus (principal)
CPT/HCPCS: 99211

== ENCOUNTER 2024-10-12 11:22 | Outpatient (AMB) | payer BC, SELFPAY ==
--- NOTE | 2024-10-12 11:27 | A.OFFVIS_ITS ---
Intake Visit Reasons: 6 WEEKS AFTER BOTOX Allergies Codeine Phosphate Allergy (Unknown, Uncoded 10/12/24 11:40) Unknown Codeine Sulfate Allergy (Unknown, Uncoded 10/12/24 11:40) Unknown Medication List - Last Reconciled 10/12/24 by Jessica Beverly CNP amitriptyline 50 mg PO BEDTIME clonazepam 1 mg PO BID PRN levothyroxine 50 mcg PO DAILY meclizine 25 mg PO Q8H PRN 30 days onabotulinumtoxinA (Botox) IM onabotulinumtoxinA (Botox) IM ondansetron 4 mg PO DAILY sumatriptan succinate 100 mg PO trazodone 50 mg PO BEDTIME PRN triamterene-hydrochlorothiazid 37.5-25 mg 0.5 tabs PO DAILY venlafaxine ER 75 mg PO DAILY venlafaxine ER 150 mg PO DAILY HPI Comments Details: She had Botox on?08/29/2024 and before that on 05/23/2024. Her next Botox is scheduled for 12/05/2024. She was feeling better after Botox injection and it helped to take the edge off. Botox generally helps with migraine frequency and severity. Sumatriptan as needed helped. Migraines are associated with visual aura, photophobia, sonophobia, nausea, and vertigo. She will need to lay down in dark, quiet room and put ice pack on head. She stopped diclofenac as it made her dizziness worse. She had some occasional dizziness and felt her left eye was not moving in sync. She also was having some swelling to lower legs this past month. Her PCP was trying to reduce her dose of clonazepam. Had Parsonage-Downey flare-up in 01/2024 with pain from left side of neck down left arm, most pain in left shoulder. Some weakness and numbness to LUE. She is left-handed. Using immobilizer. More headaches around this time. 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 She was treated with steroids which helped. Fibromyalgia pains slightly worse in colder weather. As Botox wears off, gets more?severe migraines 2-3x/week with photophobia, sonophobia, nausea, and vertigo. Sumatriptan as needed helps some. [employer] worked for her, but insurance is not covering and wanted her to try Botox. Topiramate helped reduce frequency from 18 migraines/month to 11/month and reduced intensity, but she had intolerable side effects and stopped it. Started with generalized muscle and joint soreness/pain and feeling exhausted at the end of 03/2016. When it initially started, she had low-grade fever and swelling in her knees, ankles, and right elbow. She had labs for rheumatoid arthritis, lupus, Lyme disease, thyroid, CPK, and sed rate which were all normal. Hx of migraines with visual aura that occurred during her childhood and subsided for period of time. Migraines are mostly premenstrual and are associated with nausea and vomiting. Hx of anxiety, depression, and whiplash in 2011 for which she saw chiropractor. Fibromyalgia pains slightly worse in colder weather. 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 She was treated with steroids which helped. Had Parsonage-Downey flare-up in 01/2024 with left sided neck pain down left arm, most pain in left shoulder. Some weakness and numbness to LUE and more headaches. Used immobilizer. She is left-handed. [facility] Medical History (Updated 10/12/24 @ 11:58 by Jessica Beverly CNP) Osteoarthritis Dizziness Cervical spondylosis JIGAR on CPAP Migraine Depression Fibromyalgia Family History (Updated 08/25/24 @ 13:[address] [facility]) Mother Migraine Review of Systems Const Denies chills, Denies daytime sleepiness, Reports difficulty sleeping, Denies fatigue, Denies fever(s), Denies frequent falls, Reports headache(s), Denies increased appetite, Denies poor appetite, Denies snoring, Denies weakness, Denies weight gain and Denies weight loss Eyes Denies loss of vision ENT Denies vertigo, Reports dizziness, Reports headache(s) and Reports neck pain Card Denies chest pain at rest, Denies chest pain with activity, Denies syncope, Denies leg edema, Denies palpitations, Denies dyspnea and Denies dyspnea on exertion Resp Denies cough, Denies dyspnea, Denies dyspnea on exertion and Denies snoring GI Denies abdominal pain, Denies constipation, Denies heartburn, Denies diarrhea and Denies nausea Denies urinary frequency, Denies urinary incontinence and Denies urinary urgency Musc Denies abnormal gait, Reports back pain, Reports myalgias, Reports arthralgias, Reports neck pain, Denies numbness and Denies tingling Neuro Denies abnormal gait, Denies vertigo, Reports dizziness, Denies syncope, Denies frequent falls, Reports headache(s), Denies lack of coordination, Denies loss of vision, Denies memory loss, Denies numbness, Denies Other visual disturbances, Denies restless legs, Denies seizure-like activity, Denies tingling, Denies paresthesias, Denies tremor(s) and Denies weakness Psych Reports anxiety, Reports depression, Denies auditory hallucinations, Denies memory loss and Denies visual hallucinations Endo Denies fatigue and Denies palpitations Physical Exam Const Other: General Appearance:? normal, in no acute distress. Heart:? S1, S2 normal, no murmurs. Lungs:? clear anteriorly and posteriorly. Musculoskeletal:? normal. Extremities:? Mild lower extremity edema. No calf tenderness, redness, or warmth. Psych:? alert, oriented, cognitive function intact, cooperative with exam. Neuro Other: Abnormal Neurological Findings:?Generalized muscle tenderness particularly in the upper extremities. Slow in responses. Increased left upper limb weakness. Mental Status: alert and oriented X 3. Normal attention, orientation, memory, and affect. Cranial Nerves: Pupils are equal, round, and reactive to light. External ocular muscles are intact. Visual cardenas are full, no ptosis. Face is symmetrical, no facial weakness or droop. Facial sensations are normal. Tongue protrudes in midline. Palate elevates symmetrically. Shoulder shrugging is normal Motor Examination: As above, otherwise normal muscle tone, bulk and strength. No atrophy or fasciculations. No drift of the extended upper extremities. DTR 2+. Plantars are flexor. Sensory Exam: Normal light touch, temperature, pinprick, vibration, and joint- position sensations. Rhomberg sign is absent. Coordination: No ataxia. No titubation. Zbcdcn-ii-okun, pers-tuin-xkgb test, and rapid alternating movements were normal. Gait Exam: Within normal limits. Cerebellar Signs: Bwctbr-wy-wpji and htsc-fi-pqqj is normal. No dysdiadochokinesia. Extrapyramidal System: No tremor, rigidity with normal facial expressions. No bradykinesia. No bradyphrenia. Normal arm swing and posture. No propulsion or retropulsion. Speech: Normal. No dysphasia or dysarthria. Assessment & Plan Assessment & Plan (1) Migraine: Code(s): G43.909 - Migraine, unspecified, not intractable, without status migrainosus Category: Medical Qualifiers: Intractability: not intractable Migraine type: unspecified Status migrainosus presence: without status migrainosus Qualified Code(s): G43.909 - Migraine, unspecified, not intractable, without status migrainosus Plan: Continue Botox 200u q3 months, appointment scheduled for 12/05/2024 Continue amitriptyline 50mg 1 tablet at bedtime. Continue sumatriptan 100mg 1 tablet as needed for migraine. Continue ondansetron 4mg 1 tablet as needed for nausea/vomiting. (2) Dizziness: Code(s): R42 - Dizziness and giddiness Category: Medical Plan: Continue meclizine 25mg 1 tablet as needed q8h for dizziness. (3) Osteoarthritis: Code(s): M19.90 - Unspecified osteoarthritis, unspecified site Category: Medical Qualifiers: Osteoarthritis location: unspecified site Osteoarthritis type: unspecified Qualified Code(s): M19.90 - Unspecified osteoarthritis, unspecified site Plan: She stopped diclofenac as it made dizziness worse and medication was discontinued. (4) Leg swelling: Code(s): M79.89 - Other specified soft tissue disorders Category: Medical Plan: US ordered. Keep legs elevated when sitting. Orders: Orders US venous duplex LE BI Today M79.89 - Other specified soft tissue disorders Coding Level of Care Code Est Pt Level 4 (74793) Diagnoses Migraine without status migrainosus, not intractable, unspecified migraine type G43.909 Intractability: not intractable Migraine type: unspecified Status migrainosus presence: without status migrainosus Dizziness R42 Osteoarthritis, unspecified osteoarthritis type, unspecified site M19.90 Osteoarthritis location: unspecified site Osteoarthritis type: unspecified Leg swelling M79.89
--- OUTSIDE RECORDS SUMMARY | 2024-10-12 12:40 | XMS_ITS | Clinical Summary ---
Author Organization Patient Business Ser [facility] Address [address] [place] [address] Care Team Providers Care Strip Winder Name Role Phone Humberto Puga MD Primary Care Provider [phone] Allergies Active Allergy Reactions Criticality Noted Date Comments Chlorthalidone Unknown 07/23/2021 Codeine GI intolerance 07/23/2021 Medications traZODone (DESYREL) 50 mg tablet Take 1 tablet (50 mg total) by mouth at bedtime. Active amitriptyline (ELAVIL) 50 mg tablet Take 1 tablet (50 mg total) by mouth at bedtime. Active venlafaxine XR (EFFEXOR-XR) 150 mg 24 hr capsule Take 1 capsule (150 mg total) by mouth 1 (one) time each day. 4 Active venlafaxine XR (EFFEXOR-XR) 75 mg 24 hr capsule Take 1 capsule (75 mg total) by mouth 1 (one) time each day. 4 Active clonazePAM (KlonoPIN) 1 mg tablet Take 1 tablet (1 mg total) by mouth 2 (two) times a day if needed. Active SUMAtriptan (IMITREX) 100 mg tablet Take 1 tablet (100 mg total) by mouth 1 (one) time if needed. Active meclizine (ANTIVERT) 25 mg tablet Take 1 tablet (25 mg total) by mouth 3 (three) times a day if needed. Active ondansetron ODT (ZOFRAN-ODT) 4 mg disintegrating tablet 2 tablets (8 mg total) every 8 (eight) hours if needed. 4 Active fluticasone propionate (FLONASE) 50 mcg/actuation nasal spray Administer 2 sprays into each nostril 1 (one) time each day. 4 Active levothyroxine (SYNTHROID, LEVOTHROID) 50 mcg tablet Take 1 tablet (50 mcg total) by mouth 1 (one) time each day. for 30 days 4 Active cholecalciferol (Vitamin D3) 5,000 Units tablet Take 1 tablet (5,000 Units total) by mouth 1 (one) time each day. Active Surgical History Surgery Date Site/Laterality Comments TUBAL LIGATION Medical History Medical History Date Comments Lipoma DX:Lipoma Vitamin D deficiency DX:Vitamin D deficiency Pure hypercholesterolemia DX:Pur e hypercholesterolemia Generalized anxiety disorder DX: Generalized anxiety disorder Migraine DX:Migraine Hypertensive disorder DX:Hyperte nsive disorder Seasonal allergic rhinitis DX:Se asonal allergic rhinitis Asthma DX:Asthma Actinic keratosis DX:Actinic ker atosis Cervical arthritis DX:Cervical a rthritis Sleep apnea Anxiety Hypothyroidism Social History Tobacco Use Types Packs/Day Years Used Date Smoking Tobacco: Former Smokeless Tobacco: Never Alcohol Use Standard Drinks/Week Comments Never 0 (1 standard drink = 0.6 oz pur e alcohol) Interpersonal Safety Answer Date Record ed Physical Abuse 04/18/2024 Verbal Abuse 04/18/2024 Comments No Sex and Gender Information Value Date Recorded Sex Assigned at Female 04/18/2024 11:37 AM EST Legal Sex Female 2:42 PM EDT Gender Identity Female 04/18/2024 11:37 AM EST Sexual Orientation Straight 04/18/2024 11 :37 AM EST Obstetrics History Last Filed Vital Signs Vital Sign Reading Time Taken Comments Blood Pressure 110/87 04/18/2024 1:38 PM EST Pulse 76 04/18/2024 1:38 PM EST Temperature 35.9 C (96.6 F) 04/18/2024 12:08 PM EST Respiratory Rate 19 04/18/2024 1:38 PM EST Oxygen Saturation 99% 04/18/2024 1:38 PM EST Inhaled Oxygen Concentration - - Weight 86.2 kg (190 lb) 04/11/2024 10:00 AM EST Height 162.6 cm (5' 4 ) 04/18/2024 12:08 PM EST Body Mass Index 32.61 04/11/2024 10:00 AM EST Plan of Treatment Health Maintenance Due Date Last Done Comments Breast Cancer Screening 1975 Hepatitis B Vaccines (1 of 3 - 19+ 3-dose series) 1992 Cervical Cancer Screening: Pap Smear 1994 HIV Screening 07/28/2021 Hepatitis C Screening 07/28/2021 Social Influencers of Health Screening 07/28/2021 Pneumococcal Vaccine: 50+ Years (2 of 2 - PCV) 10/08/2023 10/06/2012 Depression Screening 02/16/2024 COVID-19 Vaccine (7 - Pfizer risk season) 2024 11/12/2023, 02/18/2023, 11/27/2021, Additional history exists Influenza Vaccine (#1) 2024 , 11/30/2022, 11/19/2022, Additional history exists DTaP,Tdap,and Td Vaccines (3 - Td or Tdap) 03/23/2028 03/23/2018, 05/18/2008 Colorectal Cancer Screening: Colonoscopy 04/18/2034 04/18/2024 Zoster Vaccines Completed 01/31/2024, 11/12/2023 HIB Vaccines Aged Out No longer eligi ble based on patient's age to complete this topic HPV Vaccines Aged Out No longer eligi ble based on patient's age to complete this topic Hepatitis A Vaccines Aged Out No long er eligible based on patient's age to complete this topic IPV Vaccines Aged Out No longer eligi ble based on patient's age to complete this topic MMR Vaccines Aged Out No longer eligi ble based on patient's age to complete this topic Meningococcal ACWY Vaccine Aged Out N o longer eligible based on patient's age to complete this topic Meningococcal B Vaccine Aged Out No l onger eligible based on patient's age to complete this topic RSV Immunization Patients Under 20 months Aged Out No longer eligible based on patient's age to complete this topic Varicella Vaccines Aged Out No longer eligible based on patient's age to complete this topic Procedures Procedure Name Priority Date/Time Associated Diagnosis Comments COLONOSCOPY Routine 04/18/2024 1:17 PM EST Colon cancer screening from Last 3 Months or Most Recently Relevant to Health Maintenance Results * COLONOSCOPY Anesthesia - MAC; [facility] ENDOSCOPY (04/18/2024 1:17 PM EST) Anatomical Region Laterality Modality Endoscopy 04/18/2024 12:5 3 PM EST Impressions 04/18/2024 1:17 PM EST - The examined portion of the ileum was normal. - Internal hemorrhoids. - The entire examined colon is normal. - No specimens collected. Recommendation: - Repeat colonoscopy in 10 years for screening purposes. Narrative 04/18/2024 1:17 PM EST [facility] GI Patient Name: Chelita Thomas Procedure Date: 04/18/2024 12:53 PM Date of : 1975 Age: 48 Gender: Female Note Status: Finalized Attending MD: Faith Hartman MD, Procedure Date No Time: 04/18/2024 Procedure: Colonoscopy Indications: Screening for colorectal malignant neoplasm Providers: Faith Hartman MD Referring MD: Humberto Puga MD Medicines: Propofol per Anesthesia Complications: No immediate complications. Estimated Blood Loss: Estimated blood loss: none. Procedure: Pre-Anesthesia Assessment: - ASA Grade Assessment: II - A patient with mild systemic disease. After I obtained informed consent, the scope was passed under direct vision. Throughout the procedure, the patient's blood pressure, pulse, and oxygen saturations were monitored continuously.The Olympus Pediatric Colonoscope was introduced through the anus and advanced to the terminal ileum. The colonoscopy was performed without difficulty. The patient tolerated the procedure well. The quality of the bowel preparation was adequate. Findings: The perianal and digital rectal examinations were normal. The terminal ileum appeared normal. Internal hemorrhoids were found during retroflexion. The hemorrhoids were Grade I (internal hemorrhoids that do not prolapse). The entire examined colon appeared normal. Procedure Code(s): --- Professional --- G0121, Colorectal cancer screening; colonoscopy on individual not meeting criteria for high risk Diagnosis Code(s): --- Professional --- Z12.11, Encounter for screening for malignant neoplasm of colon CPT copyright 2020 [employer]. All rights reserved. The codes documented in this report are preliminary and upon skiver machine operator review may be revised to meet current compliance requirements. Faith Hartman MD 04/18/2024 1:17:13 PM This report has been signed electronically.Faith Hartman MD Number of Addenda: 0 Note Initiated On: 04/18/2024 12:53 PM Scope In: Scope Out: Endoscopy Department at [facility] - [address] [place] [id number] Procedure Note Faith Hartman MD - 04/18/2024 [facility] GI Patient Name: Chelita Thomas Procedure Date: 04/18/2024 12:53 PM Date of : 1975 Age: 48 Gender: Female Note Status: Finalized Attending MD: Faith Hartman MD, Procedure Date No Time: 04/18/2024 Procedure: Colonoscopy Indications: Screening for colorectal malignant neoplasm Providers: Faith Hartman MD Referring MD: Humberto Puga MD Medicines: Propofol per Anesthesia Complications: No immediate complications. Estimated Blood Loss: Estimated blood loss: none. Procedure: Pre-Anesthesia Assessment: - ASA Grade Assessment: II - A patient with mild systemic disease. After I obtained informed consent, the scope was passed under direct vision. Throughout theprocedure, the patient's blood pressure, pulse, and oxygen saturations were monitored continuously.The Olympus Pediatric Colonoscope was introduced through theanus and advanced to the terminal ileum. The colonoscopy was performed without difficulty. The patient tolerated the procedure well. The quality of thebowel preparation was adequate. Findings: The perianal and digital rectal examinations were normal. The terminal ileum appeared normal. Internal hemorrhoids were found duringretroflexion. The hemorrhoids were Grade I (internal hemorrhoids that do not prolapse). The entire examined colon appeared normal. Procedure Code(s): --- Professional --- G0121, Colorectal cancer screening; colonoscopy on individual not meeting criteria for high risk Diagnosis Code(s): --- Professional --- Z12.11, Encounter for screening for malignantneoplasm of colon CPT copyright 2020 [employer]. All rights reserved. The codes documented in this report are preliminary and upon skiver machine operator reviewmay be revised to meet current compliance requirements. Faithmalcolm Hartman MD 04/18/2024 1:17:13 PM This report has been signed electronically.Faith Hartman MD Number of Addenda: 0 Note Initiated On: 04/18/2024 12:53 PM Scope In: Scope Out: Endoscopy Department at [facility] - [address] [place] [id number] IMPRESSION: - The examined portion of the ileum was normal. - Internal hemorrhoids. - The entire examined colon is normal. - No specimens collected. Recommendation: - Repeat colonoscopy in 10 years for screening purposes. Faith Hartman MD GI~PROCEDURE ORDERABLES Final Result from Last 3 Months or Most Recently Relevant to Health Maintenance Insurance [place]) Care Teams Strip Winder Relationship Specialty Start Date End Date Humberto Puga MD [address] [place] [address] PCP - General 02/13/10
== END 2024-10-12 12:23 | disposition home or self-care (01) ==
LOC: HO.HSM 11:22
PROVIDERS: PCP Pediatrics; Visit Provider Registered Nurse
DX: G43.909 Migraine, unspecified, not intractable, without status migrainosus (principal); R42 Dizziness and giddiness; M19.90 Unspecified osteoarthritis, unspecified site; M79.89 Other specified soft tissue disorders
CPT/HCPCS: 99214

== ENCOUNTER 2024-10-20 09:17 | Outpatient (REF) | payer BC, SELFPAY ==
--- NOTE | ~2024-10-20 | US_ITS ---
EXAMINATION: US TRIPLEX LOWER EXTREMITY, BILATERAL CLINICAL INFORMATION: Lower extremity edema. COMPARISON: None available. TECHNIQUE: Color-flow triplex imaging with spectral analysis and compression Doppler were performed on the bilateral lower extremities. FINDINGS: Respiratory variation, normal compression and augmented flow are noted throughout the bilateral lower extremities. The visualized common femoral vein, superficial femoral vein, profunda femoral vein, popliteal vein and midcalf peroneal and posterior tibial venous segments show no evidence of deep venous thrombosis bilaterally. There is a Herbert's cyst in LEFT popliteal fossa measuring 4.9 x 2.2 x 4.5 cm. US/US venous duplex LE BI IMPRESSION: 1. No evidence of deep venous thrombosis involving the bilateral lower extremities. 2. LEFT-sided Herbert's cyst. Electronically signed by: Maximus Rodrigues MD 10/20/2024 10:27 AM EDT
--- OUTSIDE RECORDS SUMMARY | 2024-10-20 10:01 | XMS_ITS | Clinical Summary ---
Author Organization Patient Business Ser [facility] Address [address] [place] [address] Care Team Providers Care Sider Name Role Phone Humberto Puga MD Primary Care Provider [phone] Allergies Active Allergy Reactions Criticality Noted Date [...] Maintenance Results * COLONOSCOPY Anesthesia - MAC; [facility] ENDOSCOPY (04/18/2024 1:17 PM EST) Anatomical Region Laterality Modality Endoscopy 04/18/2024 12:5 3 PM EST Impressions 04/18/2024 1:17 PM EST - The examined portion of the ileum was normal. - Internal hemorrhoids. - The entire examined colon is normal. - No specimens collected. Recommendation: - Repeat colonoscopy in 10 years for screening purposes. Narrative 04/18/2024 1:17 PM EST [facility] GI Patient Name: Chelita Thomas Procedure Date: [...] malignant neoplasm of colon CPT copyright 2020 [employer]. All rights reserved. The codes documented in this report are preliminary and upon manhole stripper review may be revised to meet current compliance requirements. Faith Hartman MD 04/18/2024 1:17:13 PM This report has been signed electronically.Faith Hartman MD Number of Addenda: 0 Note Initiated On: 04/18/2024 12:53 PM Scope In: Scope Out: Endoscopy Department at [facility] - [address] [place] [id number] Procedure Note Faith Hartman MD - 04/18/2024 [facility] GI Patient Name: Chelita Thomas Procedure Date: [...] for malignantneoplasm of colon CPT copyright 2020 [employer]. All rights reserved. The codes documented in this report are preliminary and upon manhole stripper reviewmay be revised to meet current compliance requirements. Faithmalcolm Hartman MD 04/18/2024 1:17:13 PM This report has been signed electronically.Faith Hartman MD Number of Addenda: 0 Note Initiated On: 04/18/2024 12:53 PM Scope In: Scope Out: Endoscopy Department at [facility] - [address] [place] [id number] IMPRESSION: - The examined portion of the ileum was normal. - Internal hemorrhoids. - The entire examined colon is normal. - No specimens collected. Recommendation: - Repeat colonoscopy in 10 years for screening purposes. Faith Hartman MD GI~PROCEDURE ORDERABLES Final Result from Last 3 Months or Most Recently Relevant to Health Maintenance [place] Care Teams Sider Relationship Specialty Start Date End Date Humberto Puga MD [address] [place] [address] PCP - General 02/13/10
== END 2024-10-20 09:18 | disposition home or self-care (01) ==
LOC: HO.US 09:17
PROVIDERS: PCP Pediatrics; Visit Provider Registered Nurse
DX: R60.0 Localized edema (principal)
CPT/HCPCS: 93970

== ENCOUNTER → 2024-10-20 09:19 | Outpatient (BNV) | payer BC, SELFPAY | PROVIDERS: PCP Pediatrics; Visit Provider Radiology Diagnostic Radiology | DX: R22.42 Localized swelling, mass and lump, left lower limb (principal) | CPT/HCPCS: 93970 ==

== ENCOUNTER 2024-12-05 10:05 | Outpatient (AMB) | payer BC, SELFPAY ==
--- NOTE | 2024-12-05 10:20 | MHC.OFFVIS ---
Intake Visit Reasons: 200u Botox for Chr Migraine Allergies Codeine Phosphate Allergy (Unknown, Uncoded 10/12/24 11:40) Unknown Codeine Sulfate Allergy (Unknown, Uncoded 10/12/24 11:40) Unknown Medication List - Last Reconciled 12/05/24 by Porfirio Scott MD amitriptyline 50 mg PO BEDTIME 90 days clonazepam 1 mg PO BID PRN levothyroxine 50 mcg PO DAILY meclizine 25 mg PO Q8H PRN 30 days onabotulinumtoxinA (Botox) 200 units IM [id number] ondansetron 4 mg PO DAILY 30 days sumatriptan succinate 100 mg PO trazodone 50 mg PO BEDTIME PRN triamterene-hydrochlorothiazid 37.5-25 mg 0.5 tabs PO DAILY venlafaxine ER 75 mg PO DAILY venlafaxine ER 150 mg PO DAILY HPI Comments Details: She had Botox on?08/29/2024 and before that on 05/23/2024. Her next Botox is scheduled for 12/05/2024. She was feeling better after Botox injection and it helped to take the edge off. Botox generally helps with migraine frequency and severity. Sumatriptan as needed helped. Migraines are associated with visual aura, photophobia, sonophobia, nausea, and vertigo. She will need to lay down in dark, quiet room and put ice pack on head. She stopped diclofenac as it made her dizziness worse. She had some occasional dizziness and felt her left eye was not moving in sync. She also was having some swelling to lower legs this past month. Her PCP was trying to reduce her dose of clonazepam. Had Parsonage-Downey flare-up in 01/2024 with pain from left side of neck down left arm, most pain in left shoulder. Some weakness and numbness to LUE. She is left-handed. Using immobilizer. More headaches around this time. 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 She was treated with steroids which helped. Fibromyalgia pains slightly worse in colder weather. As Botox wears off, gets more?severe migraines 2-3x/week with photophobia, sonophobia, nausea, and vertigo. Sumatriptan as needed helps some. Isacc worked for her, but insurance is not covering and wanted her to try Botox. Topiramate helped reduce frequency from 18 migraines/month to 11/month and reduced intensity, but she had intolerable side effects and stopped it. Started with generalized muscle and joint soreness/pain and feeling exhausted at the end of 03/2016. When it initially started, she had low-grade fever and swelling in her knees, ankles, and right elbow. She had labs for rheumatoid arthritis, lupus, Lyme disease, thyroid, CPK, and sed rate which were all normal. Hx of migraines with visual aura that occurred during her childhood and subsided for period of time. Migraines are mostly premenstrual and are associated with nausea and vomiting. Hx of anxiety, depression, and whiplash in 2011 for which she saw chiropractor. Fibromyalgia pains slightly worse in colder weather. 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 She was treated with steroids which helped. Had Parsonage-Downey flare-up in 01/2024 with left sided neck pain down left arm, most pain in left shoulder. Some weakness and numbness to LUE and more headaches. Used immobilizer. She is left-handed. [facility] Medical History (Updated 10/12/24 @ 11:58 by Jessica Beverly CNP) Osteoarthritis Dizziness Cervical spondylosis JIGAR on CPAP Migraine Depression Fibromyalgia Family History (Updated 08/25/24 @ 13:37 by Ora Julian [facility]) Mother Migraine Review of Systems Const Denies chills, Denies daytime sleepiness, Reports difficulty sleeping, Denies fatigue, Denies fever(s), Denies frequent falls, Reports headache(s), Denies increased appetite, Denies poor appetite, Denies snoring, Denies weakness, Denies weight gain and Denies weight loss Eyes Denies loss of vision ENT Denies vertigo, Reports dizziness, Reports headache(s) and Reports neck pain Card Denies chest pain at rest, Denies chest pain with activity, Denies syncope, Denies leg edema, Denies palpitations, Denies dyspnea and Denies dyspnea on exertion Resp Denies cough, Denies dyspnea, Denies dyspnea on exertion and Denies snoring GI Denies abdominal pain, Denies constipation, Denies heartburn, Denies diarrhea and Denies nausea Denies urinary frequency, Denies urinary incontinence and Denies urinary urgency Musc Denies abnormal gait, Reports back pain, Reports myalgias, Reports arthralgias, Reports neck pain, Denies numbness and Denies tingling Neuro Denies abnormal gait, Denies vertigo, Reports dizziness, Denies syncope, Denies frequent falls, Reports headache(s), Denies lack of coordination, Denies loss of vision, Denies memory loss, Denies numbness, Denies Other visual disturbances, Denies restless legs, Denies seizure-like activity, Denies tingling, Denies paresthesias, Denies tremor(s) and Denies weakness Psych Reports anxiety, Reports depression, Denies auditory hallucinations, Denies memory loss and Denies visual hallucinations Endo Denies fatigue and Denies palpitations Physical Exam Const Other: General Appearance:? normal, in no acute distress. Heart:? S1, S2 normal, no murmurs. Lungs:? clear anteriorly and posteriorly. Musculoskeletal:? normal. Extremities:? Mild lower extremity edema. No calf tenderness, redness, or warmth. Psych:? alert, oriented, cognitive function intact, cooperative with exam. Neuro Other: Abnormal Neurological Findings:?Generalized muscle tenderness particularly in the upper extremities. Slow in responses. Increased left upper limb weakness. Mental Status: alert and oriented X 3. Normal attention, orientation, memory, and affect. Cranial Nerves: Pupils are equal, round, and reactive to light. External ocular muscles are intact. Visual cardenas are full, no ptosis. Face is symmetrical, no facial weakness or droop. Facial sensations are normal. Tongue protrudes in midline. Palate elevates symmetrically. Shoulder shrugging is normal Motor Examination: As above, otherwise normal muscle tone, bulk and strength. No atrophy or fasciculations. No drift of the extended upper extremities. DTR 2+. Plantars are flexor. Sensory Exam: Normal light touch, temperature, pinprick, vibration, and joint-position sensations. Rhomberg sign is absent. Coordination: No ataxia. No titubation. Bnnkze-jn-lluq, lpyt-tjpk-bcys test, and rapid alternating movements were normal. Gait Exam: Within normal limits. Cerebellar Signs: Lrweve-gf-lhtv and rstu-rj-wjal is normal. No dysdiadochokinesia. Extrapyramidal System: No tremor, rigidity with normal facial expressions. No bradykinesia. No bradyphrenia. Normal arm swing and posture. No propulsion or retropulsion. Speech: Normal. No dysphasia or dysarthria. Office Procedures Botulinum toxin Injection Details: Botox injection for chronic migraine: ? Consent:?After informed consent was obtained explaining risks, benefits, side-effects and alternatives, under asepctic precautions, the following areas were prepped and injected according to the following protocol. Prep: 200 units?Botulinum Toxin, lot DO 585 AC 4 , Exp. :? , serial # [id number] was reconstituted in the usual manner with 2ml preservative-free normal saline. Muscles & Units Injected:?200 units of Botox were injected using 4-5 units in each site? in the Procerus, Tar Distillation Supervisor, 4 sites in the frontalis muscle bilaterally, 4 sites in the temporalis muscles bilaterally,? 2 sites in the occipitalis bilaterally , and paraspinal cervical muscles and the bilateral ?trapezius.? The patient tolerated the procedure well.?_. Post-Procedure?: The patient tolerated the procedure well. There was no blood loss or adverse effect. The patient will make a follow-up appointment in 3-4 weeks. 11669 - Migraine Procedure code (CPT) selection complete Office Meds onabotulinumtoxinA 200 unit solution for injection Performing Provider: Porfirio Scott MD Performing Location: [facility] [place] [facility] Administered by: Porfirio Scott MD on 12/05/24 10:25 Dose Route Admin Location Dispensed Lot Number Expiration Date [facility] Nuclear Medicine Chief Technologist 200 unit IM 200 ea D [id number] C4 02/11/27 Total Dispensed Waste 200 ea 0 % Assessment & Plan Assessment & Plan (1) Migraine: Code(s): G43.909 - Migraine, unspecified, not intractable, without status migrainosus Category: Medical Qualifiers: Migraine type: unspecified Status migrainosus presence: without status migrainosus Intractability: not intractable Qualified Code(s): G43.909 - Migraine, unspecified, not intractable, without status migrainosus Plan: Continue Botox 200u q3 months, appointment scheduled for Late Feb 2025 with Annalee Continue amitriptyline 50mg 1 tablet at bedtime. Continue sumatriptan 100mg 1 tablet as needed for migraine. Continue ondansetron 4mg 1 tablet as needed for nausea/vomiting. (2) Dizziness: Code(s): R42 - Dizziness and giddiness Category: Medical Plan: Continue meclizine 25mg 1 tablet as needed q8h for dizziness. (3) Osteoarthritis: Code(s): M19.90 - Unspecified osteoarthritis, unspecified site Category: Medical Qualifiers: Osteoarthritis location: unspecified site Osteoarthritis type: unspecified Qualified Code(s): M19.90 - Unspecified osteoarthritis, unspecified site Plan: She stopped diclofenac as it made dizziness worse and medication was discontinued. (4) Leg swelling: Code(s): M79.89 - Other specified soft tissue disorders Category: Medical Plan: US ordered. Keep legs elevated when sitting. Plan Continue 3 monthly Botox. Continue current meds Orders: Orders AMB Botulinum toxin Injection - Patient Supplied N/C Today G43.909 - Migraine, unspecified, not intractable, without status migrainosus Medications: Refilled onabotulinumtoxinA (Botox) 200 units IM Q2BPTOGA 1 ea 4RF Coding Level of Care Code Est Pt Level 4 (19638) Diagnoses Migraine without status migrainosus, not intractable, unspecified migraine type G43.909 Migraine type: unspecified Status migrainosus presence: without status migrainosus Intractability: not intractable Dizziness R42 Osteoarthritis, unspecified osteoarthritis type, unspecified site M19.90 Osteoarthritis location: unspecified site Osteoarthritis type: unspecified Leg swelling M79.89 CPT Codes Botox Injection - Botox 3: 26873 - Migraine ([id number])
== END 2024-12-05 10:55 | disposition home or self-care (01) ==
LOC: HO.HSM 10:06
PROVIDERS: PCP Pediatrics; Visit Provider Psychiatry & Neurology Neurology
DX: G43.909 Migraine, unspecified, not intractable, without status migrainosus (principal); R42 Dizziness and giddiness; M19.90 Unspecified osteoarthritis, unspecified site; M79.89 Other specified soft tissue disorders
CPT/HCPCS: 64615

== ENCOUNTER → 2024-12-05 10:05 | Outpatient (BNVA) | payer BC, SELFPAY | PROVIDERS: PCP Pediatrics; Visit Provider Psychiatry & Neurology Neurology | DX: G43.709 Chronic migraine without aura, not intractable, without status migrainosus (principal) | CPT/HCPCS: 64615; J0585 ==

== ENCOUNTER 2025-01-16 09:36 | Outpatient (AMB) | payer BC, SELFPAY ==
--- NOTE | 2025-01-16 09:54 | A.OFFVIS_ITS ---
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 She tells me that prior to initiation of Botox therapy, she had tried several me dications to control her migraines without any significant benefit. She was experiencing a proximally 19-21 days of migraine per month which included headache associated with light and sound sensitivity, radial, and nausea. Headaches were very severe and incapacitating often reaching 10/10 in severity. After initiation of Botox therapy she has seen improvement. It took a couple of Botox therapy rounds for her to see significant changes however now she is experiencing only 1-2 migraine days per week and her pain generally reaches 7/10. She still has a accompanying light and sound sensitivity as well as nausea when she has her migraines. Occasionally vertigo. The frequency and intensity of her migraines do however increase as the Botox therapy wears off generally around 2-1/2 months. In the few weeks leading up to her next round of injections she seems to be back to her baseline frequency and intensity of prior migraines. She has however happy with the outcomes of the Botox therapy as it has so far provided her with some of the best control that her migraines have been and many years. Her last round of Botox therapy was 12/05/2024 and she will be due for her next round of Botox therapy on 03/05/2024. For abortive therapy, she has been using sumatriptan. She takes 100 mg orally and often has to repeat in 4 hours because her headache is not fully aborted the 1st time. She has not tried taking the medication at the 2 hour clarita as she thought she had to wait 4 hours. She has sometimes taken 3 doses total within a 24 hour period. Past medication trials: Topiramate- No improvement. Mouth bleeding Propranolol- Body aches Amitriptyline- Still taking with no significant benefit Emgality- No improvement Aimovig- Severe constipation Ubrelvy- Only partial relief Nurtec- No benefit- made her somnolent [facility] Medical History (Updated 01/16/25 @ 10:36 by Sue Gamble, MARKETING TECHNOLOGIST) Osteoarthritis Dizziness Cervical spondylosis JIGAR on CPAP Migraine Depression Fibromyalgia Family History (Updated 08/25/24 @ 13:37 by Ora Julian [facility]) Mother Migraine Review of Systems Const All systems reviewed & are unremarkable except as noted in HPI and below Physical Exam Const General: cooperative, healthy appearing, comfortable and no acute distress Nutritional Appearance: well nourished Orientation/consciousness: patient oriented x3 Limitations: no limitations HEENT Head: Yes normal to inspection and Yes normocephalic Eyes General: appearance normal, both eyes and all related structures Visual Styles: normal visual styles by confrontation Alignment and Position: alignment normal Periorbital: periorbital findings normal Eyelids: Yes eyelids normal Conjunctivae: conjunctivae normal Sclerae: sclerae normal Direct Ophthalmoscopy: normal light reflex Neck Neck: Yes normal visual inspection and Yes full ROM Back/Spine/Pelvis Other: Bilateral lipomas above each clavicle. Bilateral trapezius tightening with some tenderness. Neuro General: patient oriented x3 Cranial nerves: Yes CN's II-XII intact bilaterally and Yes Facial sensation intact/muscles of mastication intact Cognition (Neuro): normal cognition Gait exam (Neuro): Normal gait present Motor exam (neuro): no tremor noted Sensory Exam: double simultaneous stimulation for sensation normal Romberg Test: Negative Pupils: Normal pupillary reactivity/response: bilateral Psych Appearance: grossly normal Mental Status: mental status grossly normal Speech and movement: Normal speech and movement present and Clear speech present Affect: normal affect Attitude: cooperative Thought process: Normal thought process present Thought content: Normal thought content present Insight: Good insight present (Psych) Judgement: Good judgement present (Psych) Assessment & Plan Assessment & Plan (1) Chronic migraine without aura without status migrainosus, not intractable: Code(s): G43.709 - Chronic migraine without aura, not intractable, without status migrainosus Category: Medical Plan Chelita is a 49-year-old female patient with a past medical history of migraine and parsonage Downey syndrome who is here today for a follow up visit regarding her migraines. Botox therapy has been working well aside from a wear off effect that occurs approximately 2.5 months into her treatment. Overall however, Botox therapy has so far provided the best relief for her and she has tried several agents prior to this. I would like to try to bridge her gap in Botox therapy with trigger point injections which may help to control her pain for a few weeks leading up to her next round of injections. I will schedule her for this. For now, can continue sumatriptan as needed but I will send a trial for nasal spray which may be more effective and she can hopefully avoid subsequent dosing. She understands not to use the nasal spray in conjunction with the oral tablets. -may continue sumatriptan 100 mg as needed p.o. -we will send for a trial of sumatriptan nasal spray 5 mg which we can consider switching over to if it is more effective -Botox therapy due 03/05/2024 (I will have her scheduled for this) -trial of trigger point injections to be done 1 month prior to next Botox session in efforts to improve her pain during the Botox wear off which occurs for her approximately 2.5 months into her Botox treatment Medications: New sumatriptan 5 mg/actuation into each nostril once; if headache remains, may repeat total dose once after at least 2 hours 5 mg intranasal Q2-4H PRN 6 ea 5RF migraine headache Refilled meclizine 25 mg PO Q8H PRN 90 tabs 2RF dizziness 30 days Coding Level of Care Code Est Pt Level 4 (77589) Diagnoses Chronic migraine without aura without status migrainosus, not intractable G43.709
[2025-01-16 09:58] VITALS: BP 120/84; PULSE 104; RESP 16; O2SAT 98; BMI 34.1
--- OUTSIDE RECORDS SUMMARY | 2025-01-16 10:29 | XMS_ITS | Clinical Summary ---
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 Name Role Phone Humberto Puga MD Primary Care Provider [phone] Allergies Active Allergy Reactions Criticality Noted Date [...] Safety Answer Date Record ed Physical Abuse Unrecognized value 04/18/2024 Verbal Abuse Unrecognized value 04/18/2024 Comments No Sex and Gender Information [...] 10/08/2023 10/06/2012 Depression Screening 02/16/2024 COVID-19 Vaccine ( season) 2024 11/12/2023, 02/18/2023, 11/27/2021, Additional history exists Influenza Vaccine (#1) 2024 , 11/30/2022, 11/19/2022, Additional history exists DTaP,Tdap,and Td Vaccines (3 - Td or Tdap) 03/23/2028 03/23/2018, 05/18/2008 Colorectal Cancer Screening: Colonoscopy 04/18/2034 04/18/2024 RSV Immunization Adult Patients (1 - 1-dose 75+ series) 2048 Zoster Vaccines Completed 01/31/2024, 11/12/2023 HIB Vaccines [...] Maintenance Results * COLONOSCOPY Anesthesia - MAC; [facility] ENDOSCOPY (04/18/2024 1:17 PM EST) Anatomical Region [...] malignant neoplasm of colon CPT copyright 2020 [employer]. All rights reserved. The codes documented in this report are preliminary and upon college dean review may be revised to meet current compliance requirements. Faith Hartman MD 04/18/2024 1:17:13 PM This report has been signed electronically.Faith Hartman MD Number of Addenda: 0 Note Initiated On: 04/18/2024 12:53 PM Scope In: Scope Out: Endoscopy Department at [facility] - [address] [place] [phone] Procedure Note Faith Hartman MD - 04/18/2024 [...] for malignantneoplasm of colon CPT copyright 2020 [employer]. All rights reserved. The codes documented in this report are preliminary and upon college dean reviewmay be revised to meet current compliance requirements. Faith Hartman MD 04/18/2024 1:17:13 PM This report has been signed electronically.Faith Hartman MD Number of Addenda: 0 Note Initiated On: 04/18/2024 12:53 PM Scope In: Scope Out: Endoscopy Department at [facility] - [address] [place] [phone] IMPRESSION: - The examined portion of the ileum was normal. - Internal hemorrhoids. - The entire examined colon is normal. - No specimens collected. Recommendation: - Repeat colonoscopy in 10 years for screening purposes. us Faith Hartman MD GI~PROCEDURE ORDERABLES Final Result from Last 3 Months or Most Recently Relevant to Health Maintenance Insurance [facility] Member Subscriber Plan / Payer (Ef fective 2022-Present) Name:Chelita Thomas Member ID:[id number] Relation to Subscriber:Spouse Name:HUMBERTO THOMAS Subscriber ID:[id number] Date of :1979 Address: [address] [place] [id number] Payer ID:[id number] (NAIC) Type:Not on file Address: [address] [address] Care Teams Bag Machine Operator Relationship Specialty Start Date End Date Humberto Puga MD [address] PCP - General 02/13/10
== END 2025-01-16 10:37 | disposition home or self-care (01) ==
LOC: HO.HSM 09:36
PROVIDERS: PCP Pediatrics; Visit Provider Nurse Practitioner
DX: G43.709 Chronic migraine without aura, not intractable, without status migrainosus (principal)
CPT/HCPCS: 99214

== ENCOUNTER 2025-01-26 10:48 | Outpatient (AMB) | payer BC, SELFPAY ==
--- NOTE | 2025-01-26 11:01 | MHC.OFFVIS ---
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 At time of last visit she explained that prior to initiation of Botox therapy, she had tried several medications to control her migraines without any significant benefit. She was experiencing a proximally 19-21 days of migraine per month which included headache associated with light and sound sensitivity, radial, and nausea. Headaches were very severe and incapacitating often reaching 10/10 in severity. After initiation of Botox therapy she has seen improvement. It took a couple of Botox therapy rounds for her to see significant changes however now she is experiencing only 1-2 migraine days per week and her pain generally reaches 7/10. She still has a accompanying light and sound sensitivity as well as nausea when she has her migraines. Occasionally vertigo. The frequency and intensity of her migraines do however increase as the Botox therapy wears off generally around 2-1/2 months. In the few weeks leading up to her next round of injections she seems to be back to her baseline frequency and intensity of prior migraines. She has however happy with the outcomes of the Botox therapy as it has so far provided her with some of the best control that her migraines have been and many years. Her last round of Botox therapy was 12/05/2024 and she will be due for her next round of Botox therapy on 03/05/2024. For abortive therapy, she has been using sumatriptan. She takes 100 mg orally and often has to repeat in 4 hours because her headache is not fully aborted the 1st time. She has not tried taking the medication at the 2 hour clarita as she thought she had to wait 4 hours. She has sometimes taken 3 doses total within a 24 hour period. During her last visit, we discussed trialing trigger point injections for bridge therapy between her Botox sessions. We can do this 2 months after her Botox therapy (1 month before her next round of therapy). Past medication trials: Topiramate- No improvement. Mouth bleeding Propranolol- Body aches Amitriptyline- Still taking with no significant benefit Emgality- No improvement Aimovig- Severe constipation Ubrelvy- Only partial relief Nurtec- No benefit- made her somnolent [facility] Medical History (Updated 01/26/25 @ 11:32 by Sue Gamble CNP) Osteoarthritis Dizziness Cervical spondylosis JIGAR on CPAP Migraine Depression Fibromyalgia Family History (Updated 08/25/24 @ 13:37 by Ora Julian CMA) Mother Migraine Review of Systems Const All systems reviewed & are unremarkable except as noted in HPI and below Physical Exam Vital Signs: Last Vital Signs Pulse 96 01/26/25 11:04 Resp 16 01/26/25 11:04 BP 132/90 H 01/26/25 11:04 Pulse Ox 99 01/26/25 11:04 Oxygen Delivery Method Room Air 01/26/25 11:04 BMI result Body Mass Index 35.2 Const General: cooperative, healthy appearing, comfortable and no acute distress Nutritional Appearance: well nourished Orientation/consciousness: patient oriented x3 Limitations: no limitations HEENT Head: Yes normal to inspection and Yes normocephalic Eyes General: appearance normal, both eyes and all related structures Visual Styles: normal visual styles by confrontation Alignment and Position: alignment normal Periorbital: periorbital findings normal Eyelids: Yes eyelids normal Conjunctivae: conjunctivae normal Sclerae: sclerae normal Direct Ophthalmoscopy: normal light reflex Neck Neck: Yes normal visual inspection and Yes full ROM Back/Spine/Pelvis Other: Bilateral lipomas above each clavicle. Bilateral trapezius tightening with some tenderness. Neuro General: patient oriented x3 Cranial nerves: Yes CN's II-XII intact bilaterally and Yes Facial sensation intact/muscles of mastication intact Cognition (Neuro): normal cognition Gait exam (Neuro): Normal gait present Motor exam (neuro): no tremor noted Sensory Exam: double simultaneous stimulation for sensation normal Romberg Test: Negative Pupils: Normal pupillary reactivity/response: bilateral Psych Appearance: grossly normal Mental Status: mental status grossly normal Speech and movement: Normal speech and movement present and Clear speech present Affect: normal affect Attitude: cooperative Thought process: Normal thought process present Thought content: Normal thought content present Insight: Good insight present (Psych) Judgement: Good judgement present (Psych) Office Procedures Therapeutic Injection Therapeutic Injection Details: Trigger point injection procedure: Laterally: Bilateral Indications: Chronic headaches, myofascial pain Following universal hygiene protocol, after explaining the risks and benefits as well as hazards of the procedure to the patient, consent was signed and placed in the chart. Time-out prior to starting the procedure was performed. The areas over the bilateral trapezius were cleansed with alcohol. 2 Sites in each trapezius muscle injected with a 27 gauge 1.5 in needle with myofascial spasm. Patient tolerated the procedure well, localized bleeding was controlled. Patient monitored in the clinic for 15 minutes for complications. Patient was discharged home with instructions to apply ice to the back of their head as needed. [id number] Point Injection 3 or more All charges added?: Procedure code (CPT) selection complete Office Meds bupivacaine (PF) 0.25 % (2.5 mg/mL) injection solution Performing Provider: Sue Gamble CNP Performing Location: [facility] [place] [facility] Administered by: Sue Gamble CNP on 01/26/25 11:34 Dose Route Admin Location Dispensed Lot Number Expiration Date [facility] Ne[employer] 3 mL Infiltration 10 mL [id number] [employer] Total Dispensed Waste 10 mL 70 % Assessment & Plan Assessment & Plan (1) Chronic migraine without aura without status migrainosus, not intractable: Code(s): G43.709 - Chronic migraine without aura, not intractable, without status migrainosus Category: Medical (2) Muscle pain, myofascial: Code(s): M79.18 - Myalgia, other site Category: Medical Plan Chelita is a 49-year-old female patient with a past medical history of migraine and parsonage Downey syndrome who is here today for a follow up visit regarding her migraines. Botox therapy has been working well aside from a wear off effect that occurs approximately 2.5 months into her treatment. Overall however, Botox therapy has so far provided the best relief for her and she has tried several agents prior to this. At last visit I explained that I would like to try to bridge her gap in Botox therapy with trigger point injections which may help to control her pain for a few weeks leading up to her next round of injections. She recieved trigger point injections today without any complications. -may continue sumatriptan 100 mg as needed p.o. -sumatriptan nasal spray 5 mg which we can consider fully switching over to if it is more effective -Botox therapy due 03/05/2024 with appointment already booked -trial of trigger point injections completed today Orders: Orders AMB Trigger Point Injection Today G43.709 - Chronic migraine without aura, not intractable, without status migrainosus, M79.18 - Myalgia, other site Coding Level of Care Code Est Pt Level 1 (25190) Diagnoses Chronic migraine without aura without status migrainosus, not intractable G43.709 Muscle pain, myofascial M79.18 CPT Codes Therapeutic Injection - Ther Injection 2: [id number] Point Injection 3 or more ([id number])
[2025-01-26 11:04] VITALS: BP 132/90; PULSE 96; RESP 16; O2SAT 99; BMI 35.2
== END 2025-01-26 11:41 | disposition home or self-care (01) ==
LOC: HO.HSM 10:48
PROVIDERS: PCP Pediatrics; Visit Provider Nurse Practitioner
DX: G43.709 Chronic migraine without aura, not intractable, without status migrainosus (principal); M79.18 Myalgia, other site
CPT/HCPCS: 20553; 99499

== ENCOUNTER → 2025-01-26 10:48 | Outpatient (BNVA) | payer BC, SELFPAY | PROVIDERS: PCP Pediatrics; Visit Provider Nurse Practitioner | DX: G43.709 Chronic migraine without aura, not intractable, without status migrainosus (principal); M79.18 Myalgia, other site | CPT/HCPCS: 20553; J0665 ==